=== PATIENT | male | born 1945 | race Caucasian/White ===

== ENCOUNTER 2016-10-22 14:41 | Emergency (ER) | payer MEDICARE, MEDICAID ==
[~2016-10-22] VITALS: Ht 170.2 cm; Wt 80.0 kg
[~2016-10-22 14:41] MED LIST: ALBU90AE IH; ASPI-1158 PO; ATEN50TA PO; ATOR10TA69 PO; BENA20TA3 PO; CALC1TAB17 PO; DEXT15DR5 EACHEYE; FLUT100D IH; FLUT1DIS5 INH; HERB1CAP2 PO; IBUP200C5 PO; INSU100V3 SQ; METF500T4 PO; MOME13HF2 INH; NPH,100V11 SQ; OMEP20TA80 PO; PRAV20TA57 PO; SEREDK IH; SOTA80TA PO; TIOT18CA3 IH; VIT1TABL77 PO; [UNRECOGNIZED DRUG - CODE] OP
[2016-10-22 17:22] VITALS: BP 149/76
== END 2016-10-22 18:37 | disposition home or self-care (01) ==
LOC: ER 18:15
DX: H93.8X1 Other specified disorders of right ear (principal); E11.8 Type 2 diabetes mellitus with unspecified complications; Z79.4 Long term (current) use of insulin; I11.9 Hypertensive heart disease without heart failure; J45.909 Unspecified asthma, uncomplicated; J44.9 Chronic obstructive pulmonary disease, unspecified; E78.00 Pure hypercholesterolemia, unspecified
CPT/HCPCS: 99283

== ENCOUNTER 2018-06-02 09:15 | Inpatient (IN) | payer MEDICARE, MEDICAID ==
[~2018-06-02] VITALS: Ht 170.2 cm; Wt 70.8 kg
[~2018-06-02 09:15] MED LIST changes: +AMMO120C2 TP; -ATEN50TA PO; +BECL8.7H BOTHNSTRLS; -BENA20TA3 PO; -CALC1TAB17 PO; -DEXT15DR5 EACHEYE; -HERB1CAP2 PO; -IBUP200C5 PO; +METF-414 PO; -METF500T4 PO; -OMEP20TA80 PO; -PRAV20TA57 PO; -SEREDK IH; -[UNRECOGNIZED DRUG - CODE] OP
[2018-06-02] MEDS ORDERED: DEXTROSE 50% WATER 50ML SYRINGE IV PRN (11:15)
[2018-06-02] MEDS ORDERED: LORAZEPAM 0.5MG TABLET PO PRN (11:15)
[2018-06-02] MEDS ORDERED: IPRATROPIUM/ALBUTEROL 0.5-3(2.5)MG/3ML NEB HHN SCH (11:15)
[2018-06-02] MEDS ORDERED: MAGNESIUM/ALUMINUM HYDROXIDE/SIMETHICONE 30ML UDC PO PRN (11:15)
[2018-06-02] MEDS ORDERED: ONDANSETRON HCL 4MG/2ML INJ IV PRN (11:15)
[2018-06-02] MEDS ORDERED: CLONIDINE 0.1MG TABLET PO PRN (11:15)
[2018-06-02] MEDS ORDERED: DOCUSATE SODIUM 100MG CAPSULE PO PRN (11:15)
[2018-06-02 12:00] VITALS: BP 125/64
[2018-06-02 12:28] VITALS: BP 125/64
[2018-06-02] MEDS: INSULIN LISPRO 100 UNITS/ML SUBCUT SCH ×3 (12:52→21:00)
[2018-06-02] MEDS: BLOOD SUGAR DIAGNOSTIC STRIP TEST SCH ×3 (12:52→21:31)
[2018-06-02] MEDS ORDERED: ACETAMINOPHEN 325MG TABLET PO PRN (13:00)
[2018-06-02 14:26] LABS: BASOPHILS % 0.6 % (0.0-2.0); EOSINOPHILS % 2.5 % (0.0-5.0); HEMATOCRIT. 36.5 % (42.0-52.0); HEMOGLOBIN. 12.5 g/dL (14.0-18.0); LYMPHOCYTES % 14.5 % (20.0-50.0); MEAN CORPUSCULAR HEMOGLOBIN 28.7 pg (28.0-32.0); MEAN CORPUSCULAR VOLUME 84.1 fL (80.0-94.0); MEAN PLATELET VOLUME 7.8 fl (7.4-10.4); NEUTROPHILS % 73.4 % (40.0-76.0); PLATELET 188 x1000/uL (130-400); RED BLOOD CELL COUNT 4.34 mill/uL (4.7-6.1)
[2018-06-02 14:35] LABS: CHLORIDE 108 mEq/L (98-107); INR 1.2; PARTIAL THROMBOPLASTIN TIME 32.7 sec (23.4-31.0); PROTHROMBIN TIME 12.3 sec (9.1-11.1)
[2018-06-02 16:00] VITALS: BP 122/68
[2018-06-02 16:16] LABS: CLARITY URINE CLEAR (CLEAR); COLOR URINE YELLOW (YELLOW); KETONES URINE NEGATIVE (NEGATIVE); LEUKOCYTE ESTERASE URINE NEGATIVE (NEGATIVE); NITRITE URINE NEGATIVE (NEGATIVE); OCCULT BLOOD URINE NEGATIVE (NEGATIVE); PH URINE 7.5 (4.5-8.0); PROTEIN URINE NEGATIVE (NEGATIVE); SPECIFIC GRAVITY URINE 1.012 (1.005-1.030)
[2018-06-02] MEDS: SODIUM CHLORIDE 0.9% INJ 3ML FLUSH IVF SCH (18:10)
[2018-06-02 20:00] VITALS: BP 131/68
[2018-06-03] VITALS: BP 126/59
[2018-06-03] MEDS: IPRATROPIUM/ALBUTEROL 0.5-3(2.5)MG/3ML NEB HHN SCH ×6 (01:14→20:30)
[2018-06-03] MEDS: BUDESONIDE 0.5MG/2ML NEB HHN SCH ×2 (01:20→08:56)
[2018-06-03 04:00] VITALS: BP 139/60
[2018-06-03] MEDS: BLOOD SUGAR DIAGNOSTIC STRIP TEST SCH ×3 (06:14→16:45)
[2018-06-03] MEDS: INSULIN LISPRO 100 UNITS/ML SUBCUT SCH ×3 (06:14→16:45)
[2018-06-03] MEDS: SODIUM CHLORIDE 0.9% INJ 3ML FLUSH IVF SCH ×2 (07:05→14:00)
[2018-06-03 08:00] VITALS: BP 123/67
[2018-06-03] MEDS: ATORVASTATIN CALCIUM 20MG TABLET PO SCH (09:00)
[2018-06-03] MEDS ORDERED: BUPIVACAINE/EPINEPH/PF 0.25%/0.0005 10ML ONE ×2 (11:13→12:37)
[2018-06-03 12:00] VITALS: BP 122/74
[2018-06-03] MEDS ORDERED: BACITRACIN 50,000 UNITS/VIAL ONE (12:38)
[2018-06-03] MEDS ORDERED: NORMAL SALINE 0.9% 10 ML SYR ONE (12:38)
[2018-06-03] MEDS ORDERED: DEXT 5%/0.45% NACL 1000ML 1,000 ML IV SCH (13:30)
[2018-06-03 16:00] VITALS: BP 127/72
[2018-06-03] MEDS ORDERED: NEOSTIGMINE METHYLSULFATE 1MG/ML 10 ML VIAL ONE (20:24)
[2018-06-03] MEDS ORDERED: FENTANYL CITRATE/PF 50MCG/ML 2ML VIAL ONE ×2 (20:24→20:52)
[2018-06-03] MEDS ORDERED: ROCURONIUM BROMIDE 10MG/ML VIAL 5ML IV ONE ×2 (20:24→21:09)
[2018-06-03] MEDS ORDERED: PROPOFOL 200MG/20ML VIAL IV ONE (20:24)
[2018-06-03] MEDS ORDERED: SODIUM CHLORIDE 0.9% 10ML VIAL ONE (20:25)
[2018-06-03] MEDS ORDERED: METOCLOPRAMIDE HCL 10MG/2ML VIAL ONE (20:25)
[2018-06-03] MEDS ORDERED: MIDAZOLAM HCL 2 MG/2 ML VIAL ONE (20:25)
[2018-06-03] MEDS ORDERED: SUCCINYLCHOLINE CHLORIDE 200MG/10ML IV ONE (20:25)
[2018-06-03] MEDS ORDERED: PHENYLEPHRINE HCL 10 MG/ML 1ML (IV VIAL) IV ONE (20:25)
[2018-06-03] MEDS ORDERED: ONDANSETRON HCL 4MG/2ML INJ ONE (20:25)
[2018-06-03] MEDS ORDERED: EPHEDRINE SULFATE 50MG/ML VIAL ONE (20:25)
[2018-06-03] MEDS ORDERED: CEFAZOLIN SODIUM 1000MG/VIAL ONE (20:25)
[2018-06-03] MEDS ORDERED: GLYCOPYRROLATE 0.2 MG/ML 2ML VIAL ONE (20:25)
[2018-06-03] MEDS ORDERED: LIDOCAINE HCL/PF 1% 10 MG/ML 5ML VIAL ONE (20:25)
[2018-06-03] MEDS ORDERED: DEXAMETHASONE 4MG/ML 1ML VIAL ONE (20:25)
[2018-06-03] MEDS ORDERED: SKIN ADHESIVE 0.7 GM EA TOP ONE (21:12)
[2018-06-03] MEDS ORDERED: SODIUM CHLORIDE 0.9% 1,000 ML IV SCH (21:24)
[2018-06-03] MEDS ORDERED: MEPERIDINE HCL/PF 25MG/ML CPJ IV PRN ×2 (21:30)
[2018-06-03] MEDS ORDERED: MORPHINE SULFATE 4 MG/ML CPJ (NOT FOR IM USE) IV PRN (21:30)
[2018-06-03] MEDS ORDERED: MIDAZOLAM HCL 5 MG/5 ML VIAL IV NR (21:30)
[2018-06-03] MEDS ORDERED: HYDROMORPHONE HCL/PF 2MG/ML CPJ IV PRN (21:30)
[2018-06-03] MEDS ORDERED: ONDANSETRON HCL 4MG/2ML INJ IV PRN (21:30)
[2018-06-03 22:08] LABS: HEMATOCRIT 35.6 % (42.0-52.0); HEMOGLOBIN 11.9 g/dL (14.0-18.0); MEAN CORPUSCULAR HEMOGLOBIN 28.2 pg (28.0-32.0); MEAN CORPUSCULAR VOLUME 84.5 fL (80.0-94.0); PLATELET 163 x1000/uL (130-400); RED BLOOD CELL COUNT 4.21 mill/uL (4.7-6.1); RED CELL DISTRIBUTION WIDTH 13.7 % (11.6-14.6)
[2018-06-03] MEDS ORDERED: LABETALOL 5MG/ML SYR 20 MG/4 ML SYRINGE IV NR (22:30)
[2018-06-04] VITALS (52 sets, daily range): BP systolic 131–178; BP diastolic 66–100
[2018-06-04] MEDS: PROPOFOL 10MG/ML 100ML 100 ML IV PRN ×2 (01:11→06:34)
[2018-06-04] MEDS ORDERED: HYDRALAZINE 20MG/ML VIAL IV PRN (02:00)
[2018-06-04 02:20] LABS: BG DEOXYHEMOGLOBIN 0.5 % (0.0-5.0); BG FRACTION INSPIRED OXYGEN 100; BG HCO3 ACT 21.1 mmol/L (22.0-26.0); BG METHEMOGLOBIN 0.5 % (0.0-1.5); BG OXYGEN SATURATION 99.5 % (92.0-98.5); BG PCO2 38.6 mmHg (35.0-45.0); BG PH 7.355 (7.350-7.450); BG PIP 16 cmH2O; BG PO2 409.9 mmHg (75.0-100.0); BG SAMPLE SITE RIGHT RADIAL; BG TIDAL VOLUME(mL) 450 mL; BG TOTAL HEMOGLOBIN 13.9 g/dL (12.0-18.0); BG VENT MODE VENT - A/C; BG VENT RATE 12 set
[2018-06-04] MEDS: IPRATROPIUM/ALBUTEROL 0.5-3(2.5)MG/3ML NEB HHN SCH ×4 (03:55→20:20)
[2018-06-04 05:49] LABS: HEMATOCRIT. 39.9 % (42.0-52.0); HEMOGLOBIN. 13.5 g/dL (14.0-18.0); MEAN CORPUSCULAR HEMOGLOBIN 28.3 pg (28.0-32.0); MEAN CORPUSCULAR VOLUME 83.9 fL (80.0-94.0); PLATELET 207 x1000/uL (130-400); RED BLOOD CELL COUNT 4.76 mill/uL (4.7-6.1); RED CELL DISTRIBUTION WIDTH 14.1 % (11.6-14.6)
[2018-06-04 05:56] LABS: CHLORIDE 106 mEq/L (98-107)
[2018-06-04] MEDS: INSULIN LISPRO 100 UNITS/ML SUBCUT SCH ×4 (06:36→21:20)
[2018-06-04] MEDS: BLOOD SUGAR DIAGNOSTIC STRIP TEST SCH ×5 (06:36→20:47)
[2018-06-04 07:45] LABS: PLATELET ESTIMATE NORMAL
[2018-06-04] MEDS: ATORVASTATIN CALCIUM 20MG TABLET PO SCH (09:00)
[2018-06-04] MEDS: BUDESONIDE 0.5MG/2ML NEB HHN SCH ×2 (09:31→20:21)
[2018-06-04 11:37] LABS: BG BASE EXCESS -3.2 mmol/L (-2.0-2.0); BG CARBOXYHEMOGLOBIN 0.8 % (0.5-1.5); BG DEOXYHEMOGLOBIN 1.6 % (0.0-5.0); BG FRACTION INSPIRED OXYGEN 40; BG HCO3 ACT 21.1 mmol/L (22.0-26.0); BG METHEMOGLOBIN 0.5 % (0.0-1.5); BG OXYGEN SATURATION 98.4 % (92.0-98.5); BG OXYHEMOGLOBIN 97.1 % (94.0-97.0); BG PCO2 35.6 mmHg (35.0-45.0); BG PO2 123.8 mmHg (75.0-100.0); BG PRESSURE SUPPORT 8; BG SAMPLE SITE RIGHT RADIAL; BG TOTAL HEMOGLOBIN 14.6 g/dL (12.0-18.0); BG VENT MODE VENT - CPAP
[2018-06-04] MEDS: SODIUM CHLORIDE 0.9% INJ 3ML FLUSH IVF SCH (21:05)
[2018-06-05] VITALS (10 sets, daily range): BP systolic 129–159; BP diastolic 65–88
[2018-06-05] MEDS: IPRATROPIUM/ALBUTEROL 0.5-3(2.5)MG/3ML NEB HHN SCH ×4 (00:31→11:47)
[2018-06-05] MEDS: SODIUM CHLORIDE 0.9% INJ 3ML FLUSH IVF SCH (05:30)
[2018-06-05] MEDS: BLOOD SUGAR DIAGNOSTIC STRIP TEST SCH ×2 (06:29→08:05)
[2018-06-05] MEDS: ATORVASTATIN CALCIUM 20MG TABLET PO SCH (08:05)
[2018-06-05] MEDS: INSULIN LISPRO 100 UNITS/ML SUBCUT SCH ×2 (08:11→12:35)
[2018-06-05] MEDS: BUDESONIDE 0.5MG/2ML NEB HHN SCH (08:50)
== END 2018-06-05 16:18 | disposition home or self-care (01) | DRG 168 ==
LOC: 5WST 09:15 → MICUSO 06-04 01:01 → 3WST 06-05 00:48
PROVIDERS: ADMIT Internal Medicine Critical Care Medicine; ATTEND Internal Medicine Critical Care Medicine
PROC: 5A1935Z Respiratory Ventilation, Less than 24 Consecutive Hours (ICD-10-PCS; principal; 2018-06-03)
PROC: 07B74ZX Excision of Thorax Lymphatic, Percutaneous Endoscopic Approach, Diagnostic (ICD-10-PCS; 2018-06-03)
PROC: 0BJ08ZZ Inspection of Tracheobronchial Tree, Via Natural or Artificial Opening Endoscopic (ICD-10-PCS; 2018-06-03)
DX: R91.8 Other nonspecific abnormal finding of lung field (principal); J45.909 Unspecified asthma, uncomplicated; I10 Essential (primary) hypertension; E11.9 Type 2 diabetes mellitus without complications; Z85.46 Personal history of malignant neoplasm of prostate; C61 Malignant neoplasm of prostate; Z79.4 Long term (current) use of insulin; Z79.51 Long term (current) use of inhaled steroids; Z79.899 Other long term (current) drug therapy
CPT/HCPCS: 36415; 36600; 71045; 80048; 82375; 82805; 82962; 84478; 85027; 88305; 88331; 94002; 94003; 94640; J0171; J0330; J0360; J0690; J1100; J1815; J2175; J2250; J2370; J2405; J2704; J2710; J2765; J3010; J3490; J7040; J7070; J7620; J7626

== ENCOUNTER 2018-06-08 21:08 | Inpatient (IN) | payer MEDICARE, MEDICAID ==
[~2018-06-08] VITALS: Ht 170.2 cm; Wt 74.9 kg
[2018-06-08] MEDS ORDERED: SODIUM CHLORIDE 0.9% 1,000 ML IV ONE (23:32)
[2018-06-08] MEDS ORDERED: ONDANSETRON HCL 4MG/2ML INJ IV STA (23:32)
[2018-06-09] VITALS (9 sets, daily range): BP systolic 100–141; BP diastolic 43–70
[2018-06-09 00:24] LABS: HEMATOCRIT. 39.1 % (42.0-52.0); HEMOGLOBIN. 13.5 g/dL (14.0-18.0); MEAN CORPUSCULAR HEMOGLOBIN 28.6 pg (28.0-32.0); MEAN CORPUSCULAR VOLUME 82.8 fL (80.0-94.0); PLATELET 207 x1000/uL (130-400); RED BLOOD CELL COUNT 4.73 mill/uL (4.7-6.1); RED CELL DISTRIBUTION WIDTH 14.2 % (11.6-14.6)
[2018-06-09 00:29] LABS: CHLORIDE 106 mEq/L (98-107)
[2018-06-09 00:57] LABS: INR 1.3; PROTHROMBIN TIME 13.3 sec (9.1-11.1)
[2018-06-09 01:05] LABS: PLATELET ESTIMATE NORMAL
[2018-06-09] MEDS ORDERED: IOHEXOL-300 100 ML BOTTLE ONE (01:36)
[2018-06-09] MEDS ORDERED: SODIUM CHLORIDE 0.9% 1,000 ML IV ONE (02:05)
[2018-06-09] MEDS ORDERED: VANCOMYCIN 1 G PREMIX 200 ML IV SCH (02:15)
[2018-06-09] MEDS ORDERED: PIPERACILLIN/TAZ 3.375G PREMIX 50 ML IV ONE (02:15)
[2018-06-09] MEDS ORDERED: IPRATROPIUM/ALBUTEROL 0.5-3(2.5)MG/3ML NEB INH PRN (08:30)
[2018-06-09] MEDS ORDERED: HYDROMORPHONE HCL/PF 2MG/ML CPJ IV PRN (08:30)
[2018-06-09] MEDS ORDERED: IPRATROPIUM/ALBUTEROL 0.5-3(2.5)MG/3ML NEB HHN SCH (08:30)
[2018-06-09] MEDS ORDERED: ONDANSETRON HCL 4MG/2ML INJ IV PRN (08:30)
[2018-06-09] MEDS ORDERED: PIPERACILLIN/TAZ 3.375G PREMIX 50 ML IV SCH (11:30)
[2018-06-09] MEDS ORDERED: DIATR MEGLU/DIATRIZOATE SOLN 120ML ONE (12:06)
[2018-06-09] MEDS ORDERED: DEXTROSE 50% WATER 50ML SYRINGE IV PRN (12:45)
[2018-06-09] MEDS: INSULIN LISPRO 100 UNITS/ML SUBCUT SCH ×3 (12:45→21:22)
[2018-06-09] MEDS ORDERED: LABETALOL HCL 200 MG in DEXT 5% WATER 60 ML IV PRN (12:45)
[2018-06-09] MEDS ORDERED: IPRATROPIUM/ALBUTEROL 0.5-3(2.5)MG/3ML NEB HHN PRN (12:45)
[2018-06-09] MEDS ORDERED: ACETYLCYSTEINE 100MG/ML 10% VIAL 4ML INH NR (13:00)
[2018-06-09] MEDS: BLOOD SUGAR DIAGNOSTIC STRIP TEST SCH ×3 (13:03→21:15)
[2018-06-09] MEDS: IPRATROPIUM/ALBUTEROL 0.5-3(2.5)MG/3ML NEB HHN SCH (13:56)
[2018-06-09] MEDS: METHYLPREDNISOLONE SOD SUCC 125 MG/2 ML VIAL IV SCH ×2 (14:15→21:22)
[2018-06-09] MEDS: DEXT 5%/0.45% NACL 1000ML 1,000 ML IV SCH (18:31)
[2018-06-09] MEDS: VANCOMYCIN 1 G PREMIX 200 ML IV SCH (18:31)
[2018-06-09] MEDS: PIPERACILLIN/TAZ 3.375G PREMIX 50 ML IV SCH (21:07)
[2018-06-09] MEDS: FAMOTIDINE 20MG/2ML VIAL IV SCH (21:15)
[2018-06-10] VITALS (11 sets, daily range): BP systolic 108–138; BP diastolic 60–76
[2018-06-10] MEDS: PIPERACILLIN/TAZ 3.375G PREMIX 50 ML IV SCH ×4 (03:28→21:47)
[2018-06-10] MEDS: DEXT 5%/0.45% NACL 1000ML 1,000 ML IV SCH ×2 (03:29→10:37)
[2018-06-10] MEDS: METHYLPREDNISOLONE SOD SUCC 125 MG/2 ML VIAL IV SCH ×3 (05:51→21:47)
[2018-06-10] MEDS: VANCOMYCIN 1 G PREMIX 200 ML IV SCH ×2 (05:51→18:45)
[2018-06-10] MEDS: INSULIN LISPRO 100 UNITS/ML SUBCUT SCH ×4 (06:58→20:13)
[2018-06-10] MEDS: BLOOD SUGAR DIAGNOSTIC STRIP TEST SCH ×4 (06:58→21:47)
[2018-06-10] MEDS: FAMOTIDINE 20MG/2ML VIAL IV SCH (10:05)
[2018-06-10] MEDS ORDERED: PANTOPRAZOLE SODIUM 40 MG/VIAL IV SCH (12:00)
[2018-06-10] MEDS ORDERED: SODIUM CHLORIDE 10% FOR INH 15ML VIAL NEB INH SCH (14:45)
[2018-06-10 15:04] LABS: CLARITY URINE CLOUDY (CLEAR); COLOR URINE DARK YELLOW (YELLOW); KETONES URINE NEGATIVE (NEGATIVE); LEUKOCYTE ESTERASE URINE NEGATIVE (NEGATIVE); NITRITE URINE NEGATIVE (NEGATIVE); OCCULT BLOOD URINE NEGATIVE (NEGATIVE); PH URINE 6.5 (4.5-8.0); PROTEIN URINE NEGATIVE (NEGATIVE); SPECIFIC GRAVITY URINE 1.019 (1.005-1.030)
[2018-06-10 16:46] LABS: HEMATOCRIT. 36.3 % (42.0-52.0); HEMOGLOBIN. 12.4 g/dL (14.0-18.0); MEAN CORPUSCULAR HEMOGLOBIN 28.3 pg (28.0-32.0); MEAN PLATELET VOLUME 8.5 fl (7.4-10.4); PLATELET 219 x1000/uL (130-400); RED BLOOD CELL COUNT 4.38 mill/uL (4.7-6.1); RED CELL DISTRIBUTION WIDTH 14.1 % (11.6-14.6)
[2018-06-10 16:53] LABS: CHLORIDE 107 mEq/L (98-107)
[2018-06-10] MEDS ORDERED: AZITHROMYCIN 500 MG TABLET PO NR (17:00)
[2018-06-10 17:14] LABS: PLATELET ESTIMATE NORMAL
[2018-06-10] MEDS ORDERED: INSULIN GLARGINE UD 100 UNITS/ML SYR SUBCUT NR (19:30)
[2018-06-10] MEDS: FLUTICASONE PROPIONATE 50MCG/SPRAY BOTTLE BOTHNSTRLS SCH (21:46)
[2018-06-10] MEDS: PANTOPRAZOLE SODIUM 40 MG/VIAL IV SCH (21:46)
[2018-06-11] VITALS (11 sets, daily range): BP systolic 95–133; BP diastolic 51–78
[2018-06-11] MEDS: ACETYLCYSTEINE 100MG/ML 10% VIAL 4ML INH SCH ×4 (00:03→16:32)
[2018-06-11] MEDS: IPRATROPIUM/ALBUTEROL 0.5-3(2.5)MG/3ML NEB HHN SCH ×6 (00:47→20:19)
[2018-06-11] MEDS: PIPERACILLIN/TAZ 3.375G PREMIX 50 ML IV SCH ×4 (04:05→21:07)
[2018-06-11] MEDS: VANCOMYCIN 1 G PREMIX 200 ML IV SCH ×3 (06:14→22:35)
[2018-06-11] MEDS: METHYLPREDNISOLONE SOD SUCC 125 MG/2 ML VIAL IV SCH ×2 (06:15→13:27)
[2018-06-11 06:50] LABS: HEMATOCRIT. 37.9 % (42.0-52.0); HEMOGLOBIN. 12.9 g/dL (14.0-18.0); MEAN CORPUSCULAR HEMOGLOBIN 28.2 pg (28.0-32.0); MEAN CORPUSCULAR VOLUME 83.2 fL (80.0-94.0); MEAN PLATELET VOLUME 8.5 fl (7.4-10.4); PLATELET 231 x1000/uL (130-400); RED BLOOD CELL COUNT 4.56 mill/uL (4.7-6.1); RED CELL DISTRIBUTION WIDTH 14.3 % (11.6-14.6)
[2018-06-11 07:45] LABS: CHLORIDE 109 mEq/L (98-107)
[2018-06-11] MEDS: BLOOD SUGAR DIAGNOSTIC STRIP TEST SCH ×4 (07:51→20:32)
[2018-06-11 07:53] LABS: VANCOMYCIN TROUGH 11.9 ug/mL (5.0-10.0)
[2018-06-11] MEDS: PANTOPRAZOLE SODIUM 40 MG/VIAL IV SCH ×2 (08:34→21:06)
[2018-06-11] MEDS: INSULIN LISPRO 100 UNITS/ML SUBCUT SCH ×4 (08:35→21:06)
[2018-06-11] MEDS: FLUTICASONE PROPIONATE 50MCG/SPRAY BOTTLE BOTHNSTRLS SCH ×2 (08:35→21:07)
[2018-06-11 10:51] LABS: PLATELET ESTIMATE NORMAL
[2018-06-11] MEDS ORDERED: BARIUM SULFATE 176 GM SUSP.RECON ONE (11:29)
[2018-06-11] MEDS: AZITHROMYCIN 250 MG TABLET PO SCH (17:21)
[2018-06-11] MEDS: METHYLPREDNISOLONE SOD SUCC 40 MG/ML VIAL IV SCH (21:06)
[2018-06-11] MEDS: SODIUM CHLORIDE 0.9% 1,000 ML IV SCH (21:09)
[2018-06-12] VITALS (11 sets, daily range): BP systolic 104–154; BP diastolic 45–83
[2018-06-12] MEDS: IPRATROPIUM/ALBUTEROL 0.5-3(2.5)MG/3ML NEB HHN SCH ×5 (00:03→16:12)
[2018-06-12] MEDS: PIPERACILLIN/TAZ 3.375G PREMIX 50 ML IV SCH ×3 (04:43→17:01)
[2018-06-12] MEDS: METHYLPREDNISOLONE SOD SUCC 40 MG/ML VIAL IV SCH ×2 (05:24→13:39)
[2018-06-12 06:26] LABS: HEMATOCRIT. 35.3 % (42.0-52.0); HEMOGLOBIN. 11.7 g/dL (14.0-18.0); MEAN CORPUSCULAR HEMOGLOBIN 27.9 pg (28.0-32.0); MEAN CORPUSCULAR VOLUME 84.4 fL (80.0-94.0); MEAN PLATELET VOLUME 8.4 fl (7.4-10.4); PLATELET 215 x1000/uL (130-400); RED BLOOD CELL COUNT 4.18 mill/uL (4.7-6.1); RED CELL DISTRIBUTION WIDTH 14.2 % (11.6-14.6)
[2018-06-12] MEDS: VANCOMYCIN 1 G PREMIX 200 ML IV SCH ×2 (06:58→15:25)
[2018-06-12] MEDS: BLOOD SUGAR DIAGNOSTIC STRIP TEST SCH ×3 (07:35→17:02)
[2018-06-12 08:00] LABS: CHLORIDE 107 mEq/L (98-107)
[2018-06-12] MEDS: PANTOPRAZOLE SODIUM 40 MG/VIAL IV SCH (08:21)
[2018-06-12] MEDS: FLUTICASONE PROPIONATE 50MCG/SPRAY BOTTLE BOTHNSTRLS SCH (08:22)
[2018-06-12] MEDS: INSULIN LISPRO 100 UNITS/ML SUBCUT SCH ×3 (08:23→18:00)
[2018-06-12 09:09] LABS: HIV SCREEN 4G Non Reactive (Non Reactive)
[2018-06-12 10:05] LABS: PLATELET ESTIMATE NORMAL
[2018-06-12] MEDS ORDERED: SULF1TAB48 MT (12:37)
[2018-06-12] MEDS ORDERED: FAMO-135 MT (12:37)
[2018-06-12] MEDS ORDERED: POTASSIUM CHLORIDE 20MEQ/PACKET PO NR (12:45)
[2018-06-12] MEDS ORDERED: INSULIN LISPRO 100 UNITS/ML SUBCUT NR (13:00)
[2018-06-12] MEDS: AZITHROMYCIN 250 MG TABLET PO SCH (17:01)
[2018-06-12] MEDS: SODIUM CHLORIDE 0.9% 1,000 ML IV SCH (17:02)
[2018-06-14 17:06] LABS: HISTOPLASMA ABS QT DID Negative (Neg:<1:1)
== END 2018-06-12 19:42 | disposition home or self-care (01) | DRG 871 ==
LOC: ER 22:59 → 5EST 06-09 02:39 → EDBEDREQSVC 06-09 09:28 → ENRESERV 06-09 12:57
PROVIDERS: ADMIT Internal Medicine Critical Care Medicine; ATTEND Internal Medicine Critical Care Medicine
DX: A41.9 Sepsis, unspecified organism (principal); J18.1 Lobar pneumonia, unspecified organism; J96.00 Acute respiratory failure, unspecified whether with hypoxia or hypercapnia; J98.51 Mediastinitis; N39.0 Urinary tract infection, site not specified; J44.0 Chronic obstructive pulmonary disease with (acute) lower respiratory infection; E11.65 Type 2 diabetes mellitus with hyperglycemia; E78.00 Pure hypercholesterolemia, unspecified; I10 Essential (primary) hypertension; K80.20 Calculus of gallbladder without cholecystitis without obstruction; E78.5 Hyperlipidemia, unspecified; J31.0 Chronic rhinitis; K29.70 Gastritis, unspecified, without bleeding; K74.60 Unspecified cirrhosis of liver; B95.61 Methicillin susceptible Staphylococcus aureus infection as the cause of diseases classified elsewhere; R13.10 Dysphagia, unspecified; Z85.46 Personal history of malignant neoplasm of prostate; Z85.828 Personal history of other malignant neoplasm of skin; Z79.899 Other long term (current) drug therapy; Z79.82 Long term (current) use of aspirin
CPT/HCPCS: 36415; 71045; 71260; 74220; 74230; 80048; 80202; 82962; 83605; 83880; 84145; 84484; 86635; 86698; 86850; 86900; 87070; 87077; 87186; 87389; 87899; 92610; 92611; 93005; 93970; 94640; 96365; 96375; 97162; 99291; C9113; J1170; J1815; J2405; J2543; J2920; J2930; J3370; J3490; J7030; J7050; J7131; J7608; J7620; Q9963; Q9967

== ENCOUNTER 2018-06-25 11:45 | Inpatient (IN) | payer MEDICARE, MEDICAID ==
[~2018-06-25] VITALS: Ht 170.2 cm; Wt 73.5 kg
[~2018-06-25 11:45] MED LIST changes: +FAMO-135 MT; +SULF1TAB48 MT
[2018-06-25 14:00] VITALS: BP 109/53
[2018-06-25] MEDS ORDERED: ACETAMINOPHEN 650MG SUPP PR PRN (14:15)
[2018-06-25] MEDS ORDERED: CLONIDINE 0.1MG TABLET PO PRN (14:15)
[2018-06-25] MEDS ORDERED: DOCUSATE SODIUM 100MG CAPSULE PO PRN (14:15)
[2018-06-25] MEDS ORDERED: DEXTROSE 50% WATER 50ML SYRINGE IV PRN (14:15)
[2018-06-25] MEDS ORDERED: ONDANSETRON HCL 4MG/2ML INJ IV PRN (14:15)
[2018-06-25] MEDS ORDERED: DIPHENHYDRAMINE 50MG/ML VIAL IV PRN (14:15)
[2018-06-25 15:00] VITALS: BP 109/53
[2018-06-25 16:00] VITALS: BP 112/53
[2018-06-25 16:58] LABS: BASOPHILS % 0.4 % (0.0-2.0); EOSINOPHILS % 0.8 % (0.0-5.0); HEMATOCRIT. 36.3 % (42.0-52.0); HEMOGLOBIN. 12.2 g/dL (14.0-18.0); LYMPHOCYTES % 9.4 % (20.0-50.0); MEAN CORPUSCULAR HEMOGLOBIN 28.8 pg (28.0-32.0); MEAN CORPUSCULAR VOLUME 85.3 fL (80.0-94.0); MEAN PLATELET VOLUME 7.5 fl (7.4-10.4); NEUTROPHILS % 77.4 % (40.0-76.0); PLATELET 222 x1000/uL (130-400); RED BLOOD CELL COUNT 4.26 mill/uL (4.7-6.1); RED CELL DISTRIBUTION WIDTH 15.5 % (11.6-14.6)
[2018-06-25 17:01] LABS: CHLORIDE 105 mEq/L (98-107)
[2018-06-25 17:05] LABS: INR 1.2; PROTHROMBIN TIME 12.2 sec (9.1-11.1)
[2018-06-25] MEDS: INSULIN LISPRO 100 UNITS/ML SUBCUT SCH ×2 (17:48→20:36)
[2018-06-25] MEDS: BLOOD SUGAR DIAGNOSTIC STRIP TEST SCH ×2 (17:48→20:36)
[2018-06-25] MEDS: DEXT 5%/0.45% NACL 1000ML 1,000 ML IV SCH (18:00)
[2018-06-25] MEDS ORDERED: IOHEXOL-300 50 ML BOTTLE IV ONE (18:39)
[2018-06-25] MEDS ORDERED: IOHEXOL-300 100 ML BOTTLE ONE (18:40)
[2018-06-25 20:09] VITALS: BP 116/56
[2018-06-26] VITALS (30 sets, daily range): BP systolic 89–123; BP diastolic 32–63
[2018-06-26] MEDS: BLOOD SUGAR DIAGNOSTIC STRIP TEST SCH ×3 (06:24→21:13)
[2018-06-26] MEDS: ENOXAPARIN 40MG/0.4ML SYR SUBCUT SCH (07:24)
[2018-06-26] MEDS: INSULIN LISPRO 100 UNITS/ML SUBCUT SCH ×4 (07:31→21:15)
[2018-06-26] MEDS ORDERED: NORMAL SALINE 0.9% 10 ML SYR ONE (09:12)
[2018-06-26] MEDS ORDERED: TETRACAINE/BENZOCAINE/BUTAMBEN 20 GM SPRAY MM ONE (09:12)
[2018-06-26] MEDS ORDERED: BUPIVACAINE/EPINEPH/PF 0.25%/0.0005 10ML ONE (09:12)
[2018-06-26] MEDS ORDERED: BACITRACIN 50,000 UNITS/VIAL ONE (09:13)
[2018-06-26] MEDS: PANTOPRAZOLE SODIUM 40 MG/VIAL IV SCH (09:24)
[2018-06-26] MEDS ORDERED: NEOSTIGMINE METHYLSULFATE 1MG/ML 10 ML VIAL ONE (09:51)
[2018-06-26] MEDS ORDERED: PROPOFOL 200MG/20ML VIAL IV ONE (09:51)
[2018-06-26] MEDS ORDERED: MIDAZOLAM HCL 2 MG/2 ML VIAL ONE (09:51)
[2018-06-26] MEDS ORDERED: FENTANYL CITRATE/PF 50MCG/ML 5ML VIAL ONE (09:51)
[2018-06-26] MEDS ORDERED: SUCCINYLCHOLINE CHLORIDE 200MG/10ML IV ONE (09:52)
[2018-06-26] MEDS ORDERED: GLYCOPYRROLATE 0.2 MG/ML 2ML VIAL ONE (09:52)
[2018-06-26] MEDS ORDERED: VECURONIUM BROMIDE 10 MG/VIAL IV ONE (09:52)
[2018-06-26] MEDS ORDERED: EPHEDRINE SULFATE 50MG/ML VIAL ONE (09:53)
[2018-06-26] MEDS ORDERED: SODIUM CHLORIDE 0.9% 10ML VIAL ONE (09:58)
[2018-06-26] MEDS ORDERED: SKIN ADHESIVE 0.7 GM EA TOP ONE (11:17)
[2018-06-26] MEDS ORDERED: BACITRACIN 15GM TUBE TOP ONE (11:51)
[2018-06-26] MEDS ORDERED: ONDANSETRON HCL 4MG/2ML INJ IV PRN (12:15)
[2018-06-26] MEDS ORDERED: FENTANYL CITRATE/PF 50MCG/ML 2ML VIAL IV PRN (12:15)
[2018-06-26] MEDS ORDERED: MORPHINE SULFATE 4 MG/ML CPJ (NOT FOR IM USE) IV PRN (12:15)
[2018-06-26] MEDS ORDERED: MEPERIDINE HCL/PF 25MG/ML CPJ IV PRN (12:15)
[2018-06-26] MEDS ORDERED: HYDROMORPHONE HCL/PF 2MG/ML CPJ IV PRN ×3 (12:15→16:00)
[2018-06-26] MEDS: DEXT 5%/0.45% NACL 1000ML 1,000 ML IV SCH (12:18)
[2018-06-26] MEDS ORDERED: KETOROLAC 30MG/ML VIAL ONE (12:37)
[2018-06-26] MEDS: CEFEPIME 1,000 MG in DEXTROSE 5% WATER 50 ML IV SCH ×2 (13:00→21:31)
[2018-06-26] MEDS ORDERED: METRONIDAZOLE 500 MG PREMIX 100 ML IV SCH ×2 (14:00→21:00)
[2018-06-26] MEDS ORDERED: DIPHENHYDRAMINE INJ IV PRN (14:15)
[2018-06-26] MEDS ORDERED: HYDROMORPHONE PCA 10MG/50ML IV PRN (14:15)
[2018-06-26] MEDS ORDERED: ONDANSETRON INJ IV PRN (14:15)
[2018-06-26] MEDS ORDERED: NALOXONE INJ IV PRN (14:15)
[2018-06-26 18:12] LABS: HEMATOCRIT. 32.4 % (42.0-52.0); HEMOGLOBIN. 11.1 g/dL (14.0-18.0); MEAN CORPUSCULAR HEMOGLOBIN 29.2 pg (28.0-32.0); MEAN CORPUSCULAR VOLUME 85.6 fL (80.0-94.0); MEAN PLATELET VOLUME 7.4 fl (7.4-10.4); PLATELET 170 x1000/uL (130-400); RED BLOOD CELL COUNT 3.78 mill/uL (4.7-6.1); RED CELL DISTRIBUTION WIDTH 14.8 % (11.6-14.6)
[2018-06-26 18:18] LABS: CHLORIDE 107 mEq/L (98-107)
[2018-06-26 20:40] LABS: PLATELET ESTIMATE NORMAL
[2018-06-26] MEDS: METRONIDAZOLE 500 MG PREMIX 100 ML IV SCH (21:31)
[2018-06-27] VITALS (49 sets, daily range): BP systolic 55–154; BP diastolic 35–90
[2018-06-27] MEDS: DEXT 5%/0.45% NACL 1000ML 1,000 ML IV SCH (02:40)
[2018-06-27] MEDS: ACETAMINOPHEN 325MG TABLET PO PRN (04:47)
[2018-06-27 05:47] LABS: HEMATOCRIT. 34.7 % (42.0-52.0); HEMOGLOBIN. 11.7 g/dL (14.0-18.0); MEAN CORPUSCULAR HEMOGLOBIN 28.9 pg (28.0-32.0); MEAN CORPUSCULAR VOLUME 85.6 fL (80.0-94.0); MEAN PLATELET VOLUME 7.3 fl (7.4-10.4); PLATELET 191 x1000/uL (130-400); RED BLOOD CELL COUNT 4.06 mill/uL (4.7-6.1); RED CELL DISTRIBUTION WIDTH 15.4 % (11.6-14.6)
[2018-06-27 05:54] LABS: CHLORIDE 105 mEq/L (98-107)
[2018-06-27] MEDS: BLOOD SUGAR DIAGNOSTIC STRIP TEST SCH ×4 (06:43→21:09)
[2018-06-27] MEDS: INSULIN LISPRO 100 UNITS/ML SUBCUT SCH ×4 (06:44→21:45)
[2018-06-27] MEDS: CEFEPIME 1,000 MG in DEXTROSE 5% WATER 50 ML IV SCH ×2 (09:01→20:06)
[2018-06-27] MEDS: ENOXAPARIN 40MG/0.4ML SYR SUBCUT SCH (09:02)
[2018-06-27] MEDS: METRONIDAZOLE 500 MG PREMIX 100 ML IV SCH ×2 (09:02→21:10)
[2018-06-27] MEDS: PANTOPRAZOLE SODIUM 40 MG/VIAL IV SCH (09:47)
[2018-06-27 14:22] LABS: PLATELET ESTIMATE NORMAL
[2018-06-27 16:41] LABS: HEMATOCRIT 34.5 % (42.0-52.0); HEMOGLOBIN 11.6 g/dL (14.0-18.0); MEAN CORPUSCULAR HEMOGLOBIN 29.2 pg (28.0-32.0); MEAN CORPUSCULAR VOLUME 86.4 fL (80.0-94.0); PLATELET 185 x1000/uL (130-400); RED BLOOD CELL COUNT 3.99 mill/uL (4.7-6.1); RED CELL DISTRIBUTION WIDTH 15.4 % (11.6-14.6)
[2018-06-27 17:05] LABS: HEPATITIS B SURFACE ANTIGEN NEGATIVE
[2018-06-27 17:35] LABS: HEPATITIS A AB IGM NEGATIVE (NEGATIVE)
[2018-06-27 17:46] LABS: CHLORIDE 106 mEq/L (98-107)
[2018-06-27] MEDS: HYDROMORPHONE HCL/PF 2MG/ML CPJ IV PRN (19:25)
[2018-06-28] VITALS (47 sets, daily range): BP systolic 99–144; BP diastolic 57–72
[2018-06-28] MEDS: DEXT 5%/0.45% NACL 1000ML 1,000 ML IV SCH ×2 (00:46→23:33)
[2018-06-28] MEDS: BLOOD SUGAR DIAGNOSTIC STRIP TEST SCH ×4 (05:55→20:57)
[2018-06-28 06:00] LABS: BASOPHILS % 0.6 % (0.0-2.0); EOSINOPHILS % 1.7 % (0.0-5.0); HEMATOCRIT. 32.6 % (42.0-52.0); HEMOGLOBIN. 11.2 g/dL (14.0-18.0); LYMPHOCYTES % 8.2 % (20.0-50.0); MEAN CORPUSCULAR HEMOGLOBIN 29.1 pg (28.0-32.0); MEAN PLATELET VOLUME 7.5 fl (7.4-10.4); NEUTROPHILS % 78.5 % (40.0-76.0); PLATELET 169 x1000/uL (130-400); RED BLOOD CELL COUNT 3.84 mill/uL (4.7-6.1)
[2018-06-28 06:14] LABS: CHLORIDE 105 mEq/L (98-107)
[2018-06-28] MEDS: INSULIN LISPRO 100 UNITS/ML SUBCUT SCH ×4 (06:24→20:57)
[2018-06-28 08:50] LABS: BG CARBOXYHEMOGLOBIN 0.4 % (0.5-1.5); BG FRACTION INSPIRED OXYGEN 32; BG HCO3 ACT 19.2 mmol/L (22.0-26.0); BG METHEMOGLOBIN 0.3 % (0.0-1.5); BG OXYHEMOGLOBIN 96.3 % (94.0-97.0); BG PCO2 29.6 mmHg (35.0-45.0); BG PH 7.431 (7.350-7.450); BG PO2 90.9 mmHg (75.0-100.0); BG SAMPLE SITE LEFT BRACHIAL; BG TOTAL HEMOGLOBIN 11.8 g/dL (12.0-18.0); BG VENT MODE NASAL CANNULA
[2018-06-28] MEDS: PANTOPRAZOLE SODIUM 40 MG/VIAL IV SCH (09:20)
[2018-06-28] MEDS: CEFEPIME 1,000 MG in DEXTROSE 5% WATER 50 ML IV SCH ×2 (09:20→20:57)
[2018-06-28] MEDS: ENOXAPARIN 40MG/0.4ML SYR SUBCUT SCH (09:20)
[2018-06-28] MEDS: METRONIDAZOLE 500 MG PREMIX 100 ML IV SCH ×2 (11:12→20:57)
[2018-06-28] MEDS: HYDROMORPHONE HCL/PF 2MG/ML CPJ IV PRN (16:37)
[2018-06-29] VITALS (48 sets, daily range): BP systolic 114–156; BP diastolic 30–77
[2018-06-29 05:55] LABS: HEMATOCRIT. 32.3 % (42.0-52.0); HEMOGLOBIN. 11.1 g/dL (14.0-18.0); MEAN CORPUSCULAR HEMOGLOBIN 29.1 pg (28.0-32.0); MEAN CORPUSCULAR VOLUME 84.6 fL (80.0-94.0); MEAN PLATELET VOLUME 7.4 fl (7.4-10.4); PLATELET 171 x1000/uL (130-400); RED BLOOD CELL COUNT 3.82 mill/uL (4.7-6.1); RED CELL DISTRIBUTION WIDTH 15.3 % (11.6-14.6)
[2018-06-29 05:56] LABS: CHLORIDE 105 mEq/L (98-107)
[2018-06-29] MEDS: INSULIN LISPRO 100 UNITS/ML SUBCUT SCH ×4 (06:08→20:16)
[2018-06-29] MEDS: BLOOD SUGAR DIAGNOSTIC STRIP TEST SCH ×4 (06:09→20:04)
[2018-06-29] MEDS: CEFEPIME 1,000 MG in DEXTROSE 5% WATER 50 ML IV SCH ×2 (09:35→20:03)
[2018-06-29] MEDS: METRONIDAZOLE 500 MG PREMIX 100 ML IV SCH ×2 (09:35→20:03)
[2018-06-29] MEDS: PANTOPRAZOLE SODIUM 40 MG/VIAL IV SCH (09:35)
[2018-06-29] MEDS: HYDROMORPHONE HCL/PF 2MG/ML CPJ IV PRN ×2 (10:09→18:30)
[2018-06-29 10:31] LABS: PLATELET ESTIMATE NORMAL
[2018-06-29] MEDS: ETHAMBUTOL HCL 400MG TABLET PO SCH (17:45)
[2018-06-29] MEDS: PYRAZINAMIDE 500MG TABLET PO SCH (17:45)
[2018-06-29] MEDS: ISONIAZID 300MG TABLET PO SCH (17:45)
[2018-06-29] MEDS: PYRIDOXINE HCL 50MG TABLET PO SCH (17:45)
[2018-06-29] MEDS: RIFAMPIN 300MG CAPSULE PO SCH (17:46)
[2018-06-29] MEDS: DEXT 5%/0.45% NACL 1000ML 1,000 ML IV SCH (20:03)
[2018-06-30] VITALS (30 sets, daily range): BP systolic 112–145; BP diastolic 58–107
[2018-06-30 05:30] LABS: BASOPHILS % 0.3 % (0.0-2.0); EOSINOPHILS % 2.7 % (0.0-5.0); HEMATOCRIT. 32.5 % (42.0-52.0); HEMOGLOBIN. 11.2 g/dL (14.0-18.0); LYMPHOCYTES % 7.2 % (20.0-50.0); MEAN CORPUSCULAR VOLUME 84.2 fL (80.0-94.0); MEAN PLATELET VOLUME 7.2 fl (7.4-10.4); MONOCYTES % 9.9 % (2.0-8.0); NEUTROPHILS % 79.9 % (40.0-76.0); PLATELET 168 x1000/uL (130-400); RED BLOOD CELL COUNT 3.86 mill/uL (4.7-6.1); RED CELL DISTRIBUTION WIDTH 15.5 % (11.6-14.6)
[2018-06-30 05:45] LABS: INR 1.7; PARTIAL THROMBOPLASTIN TIME 41.4 sec (23.4-31.0); PROTHROMBIN TIME 16.6 sec (9.1-11.1)
[2018-06-30 06:15] LABS: CHLORIDE 107 mEq/L (98-107)
[2018-06-30] MEDS: INSULIN LISPRO 100 UNITS/ML SUBCUT SCH ×4 (07:00→21:01)
[2018-06-30] MEDS: METRONIDAZOLE 500 MG PREMIX 100 ML IV SCH ×2 (09:14→21:00)
[2018-06-30] MEDS: PANTOPRAZOLE SODIUM 40 MG/VIAL IV SCH (09:14)
[2018-06-30] MEDS: CEFEPIME 1,000 MG in DEXTROSE 5% WATER 50 ML IV SCH ×2 (09:15→21:00)
[2018-06-30] MEDS: HYDROMORPHONE HCL/PF 2MG/ML CPJ IV PRN (10:19)
[2018-06-30] MEDS: BLOOD SUGAR DIAGNOSTIC STRIP TEST SCH ×3 (13:00→20:11)
[2018-06-30] MEDS: ACETYLCYSTEINE 100MG/ML 10% VIAL 4ML INH SCH (13:32)
[2018-06-30] MEDS: IPRATROPIUM/ALBUTEROL 0.5-3(2.5)MG/3ML NEB HHN PRN (13:33)
[2018-06-30 15:06] LABS: QFT MITOGEN VALUE 4.34 IU/mL (.); QFT TB GOLD PLUS Positive (Negative); QFT TB1 AG VALUE 3.13 IU/mL (.)
[2018-06-30] MEDS: DEXT 5%/0.45% NACL 1000ML 1,000 ML IV SCH (16:45)
[2018-06-30] MEDS ORDERED: SODIUM CHLORIDE 3% FOR INH 4ML UD NEB INH NR (17:00)
[2018-06-30] MEDS: PYRAZINAMIDE 500MG TABLET PO SCH (18:22)
[2018-06-30] MEDS: PYRIDOXINE HCL 50MG TABLET PO SCH (18:22)
[2018-06-30] MEDS: ETHAMBUTOL HCL 400MG TABLET PO SCH (18:22)
[2018-06-30] MEDS: ISONIAZID 300MG TABLET PO SCH (18:22)
[2018-06-30] MEDS: RIFAMPIN 300MG CAPSULE PO SCH (18:22)
[2018-07-01] VITALS: BP 128/64
[2018-07-01] MEDS: IPRATROPIUM/ALBUTEROL 0.5-3(2.5)MG/3ML NEB HHN PRN ×2 (00:33→13:26)
[2018-07-01] MEDS: ACETYLCYSTEINE 100MG/ML 10% VIAL 4ML INH SCH ×2 (00:34→13:26)
[2018-07-01 06:00] VITALS: BP 116/57
[2018-07-01] MEDS ORDERED: SODIUM CHLORIDE 10% FOR INH 15ML VIAL NEB INH NR (06:00)
[2018-07-01 06:55] LABS: BASOPHILS % 0.7 % (0.0-2.0); HEMATOCRIT. 34.9 % (42.0-52.0); LYMPHOCYTES % 10.4 % (20.0-50.0); MEAN CORPUSCULAR HEMOGLOBIN 28.9 pg (28.0-32.0); MEAN CORPUSCULAR VOLUME 83.8 fL (80.0-94.0); MEAN PLATELET VOLUME 7.5 fl (7.4-10.4); MONOCYTES % 12.9 % (2.0-8.0); PLATELET 228 x1000/uL (130-400); RED BLOOD CELL COUNT 4.17 mill/uL (4.7-6.1); RED CELL DISTRIBUTION WIDTH 15.6 % (11.6-14.6)
[2018-07-01 06:56] LABS: CHLORIDE 107 mEq/L (98-107)
[2018-07-01 08:00] VITALS: BP 119/61
[2018-07-01] MEDS: BLOOD SUGAR DIAGNOSTIC STRIP TEST SCH ×4 (08:42→21:55)
[2018-07-01] MEDS: INSULIN LISPRO 100 UNITS/ML SUBCUT SCH ×4 (08:42→21:00)
[2018-07-01] MEDS: PANTOPRAZOLE SODIUM 40 MG/VIAL IV SCH (09:36)
[2018-07-01] MEDS: PYRIDOXINE HCL 50MG TABLET PO SCH (09:37)
[2018-07-01] MEDS: METRONIDAZOLE 500 MG PREMIX 100 ML IV SCH ×2 (09:37→21:55)
[2018-07-01] MEDS: ENOXAPARIN 40MG/0.4ML SYR SUBCUT SCH (09:37)
[2018-07-01] MEDS: CEFEPIME 1,000 MG in DEXTROSE 5% WATER 50 ML IV SCH ×2 (09:38→21:55)
[2018-07-01] MEDS: PYRAZINAMIDE 500MG TABLET PO SCH (10:23)
[2018-07-01] MEDS: ETHAMBUTOL HCL 400MG TABLET PO SCH (10:23)
[2018-07-01] MEDS: ISONIAZID 300MG TABLET PO SCH (10:23)
[2018-07-01] MEDS: RIFAMPIN 300MG CAPSULE PO SCH (10:23)
[2018-07-01 12:00] VITALS: BP 114/58
[2018-07-01] MEDS ORDERED: SODIUM CHLORIDE 0.9% 10ML VIAL ONE (15:16)
[2018-07-01] MEDS ORDERED: SIMETHICONE 40 MG/0.6 ML 30ML ONE (15:52)
[2018-07-01] MEDS ORDERED: FENTANYL CITRATE/PF 50MCG/ML 2ML VIAL ONE (15:53)
[2018-07-01] MEDS ORDERED: MIDAZOLAM HCL 5 MG/5 ML VIAL ONE (15:53)
[2018-07-01 16:00] VITALS: BP 118/59
[2018-07-01] MEDS ORDERED: MIDAZOLAM HCL 5 MG/5 ML VIAL IV PRN (16:12)
[2018-07-01] MEDS: DICYCLOMINE HCL 10MG CAPSULE PO SCH (18:28)
[2018-07-01 20:00] VITALS: BP 119/57
[2018-07-02] VITALS: BP 116/59
[2018-07-02] MEDS: IPRATROPIUM/ALBUTEROL 0.5-3(2.5)MG/3ML NEB HHN PRN ×3 (00:45→16:15)
[2018-07-02] MEDS: ACETYLCYSTEINE 100MG/ML 10% VIAL 4ML INH SCH ×4 (00:46→16:11)
[2018-07-02] MEDS: DICYCLOMINE HCL 10MG CAPSULE PO SCH ×4 (01:00→17:39)
[2018-07-02 04:00] VITALS: BP 122/64
[2018-07-02 07:13] LABS: BASOPHILS % 0.9 % (0.0-2.0); EOSINOPHILS % 2.3 % (0.0-5.0); HEMATOCRIT. 35.5 % (42.0-52.0); HEMOGLOBIN. 12.3 g/dL (14.0-18.0); MEAN CORPUSCULAR HEMOGLOBIN 29.2 pg (28.0-32.0); MEAN CORPUSCULAR VOLUME 84.6 fL (80.0-94.0); MEAN PLATELET VOLUME 7.8 fl (7.4-10.4); MONOCYTES % 10.3 % (2.0-8.0); NEUTROPHILS % 78.5 % (40.0-76.0); PLATELET 259 x1000/uL (130-400)
[2018-07-02] MEDS: INSULIN LISPRO 100 UNITS/ML SUBCUT SCH ×4 (07:13→22:33)
[2018-07-02] MEDS: BLOOD SUGAR DIAGNOSTIC STRIP TEST SCH ×4 (07:13→21:00)
[2018-07-02 07:28] LABS: CHLORIDE 108 mEq/L (98-107)
[2018-07-02 08:00] VITALS: BP 130/65
[2018-07-02] MEDS ORDERED: ISONIAZID 300MG TABLET PO SCH ×2 (09:00→14:00)
[2018-07-02] MEDS: PANTOPRAZOLE SODIUM 40 MG/VIAL IV SCH (09:51)
[2018-07-02] MEDS: RIFAMPIN 300MG CAPSULE PO SCH (09:51)
[2018-07-02] MEDS: DEXT 5%/0.45% NACL 1000ML 1,000 ML IV SCH (09:53)
[2018-07-02] MEDS: ENOXAPARIN 40MG/0.4ML SYR SUBCUT SCH (09:53)
[2018-07-02] MEDS: PYRIDOXINE HCL 50MG TABLET PO SCH (09:54)
[2018-07-02 12:00] VITALS: BP 136/64
[2018-07-02] MEDS: CEFEPIME 1,000 MG in DEXTROSE 5% WATER 50 ML IV SCH ×2 (12:59→21:31)
[2018-07-02] MEDS: METRONIDAZOLE 500 MG PREMIX 100 ML IV SCH ×2 (12:59→22:33)
[2018-07-02] MEDS: MULTIVITAMINS,THER W-MINERALS TABLET PO SCH (13:00)
[2018-07-02] MEDS ORDERED: PYRAZINAMIDE 500MG TABLET PO SCH (14:00)
[2018-07-02 16:00] VITALS: BP 125/62
[2018-07-02] MEDS: ONDANSETRON HCL 4MG/2ML INJ IV PRN (17:39)
[2018-07-02] MEDS: ETHAMBUTOL HCL 400MG TABLET PO SCH (17:39)
[2018-07-02 20:00] VITALS: BP 117/60
[2018-07-03] MEDS: DICYCLOMINE HCL 10MG CAPSULE PO SCH ×4 (00:08→19:07)
[2018-07-03] MEDS: IPRATROPIUM/ALBUTEROL 0.5-3(2.5)MG/3ML NEB HHN PRN ×2 (01:39→22:44)
[2018-07-03 04:00] VITALS: BP 112/50
[2018-07-03] MEDS: ONDANSETRON HCL 4MG/2ML INJ IV PRN (05:12)
[2018-07-03] MEDS: DEXT 5%/0.45% NACL 1000ML 1,000 ML IV SCH ×2 (05:13→13:31)
[2018-07-03] MEDS: BLOOD SUGAR DIAGNOSTIC STRIP TEST SCH ×4 (06:41→21:00)
[2018-07-03 07:47] LABS: BASOPHILS % 0.9 % (0.0-2.0); HEMATOCRIT. 36.2 % (42.0-52.0); LYMPHOCYTES % 11.9 % (20.0-50.0); MEAN CORPUSCULAR HEMOGLOBIN 28.4 pg (28.0-32.0); MEAN CORPUSCULAR VOLUME 85.5 fL (80.0-94.0); MEAN PLATELET VOLUME 7.6 fl (7.4-10.4); MONOCYTES % 12.4 % (2.0-8.0); NEUTROPHILS % 69.8 % (40.0-76.0); PLATELET 271 x1000/uL (130-400); RED BLOOD CELL COUNT 4.23 mill/uL (4.7-6.1); RED CELL DISTRIBUTION WIDTH 16.2 % (11.6-14.6)
[2018-07-03 08:00] VITALS: BP 116/56
[2018-07-03] MEDS: INSULIN LISPRO 100 UNITS/ML SUBCUT SCH ×3 (08:10→18:10)
[2018-07-03 08:12] LABS: CHLORIDE 109 mEq/L (98-107)
[2018-07-03] MEDS: LEVOFLOXACIN 250MG TABLET PO SCH (10:55)
[2018-07-03] MEDS: PYRIDOXINE HCL 50MG TABLET PO SCH (10:55)
[2018-07-03] MEDS: PANTOPRAZOLE SODIUM 40 MG/VIAL IV SCH (10:56)
[2018-07-03] MEDS: CEFEPIME 1,000 MG in DEXTROSE 5% WATER 50 ML IV SCH ×2 (10:56→20:52)
[2018-07-03] MEDS: ENOXAPARIN 40MG/0.4ML SYR SUBCUT SCH (10:56)
[2018-07-03] MEDS: METRONIDAZOLE 500 MG PREMIX 100 ML IV SCH ×2 (10:57→20:52)
[2018-07-03 12:00] VITALS: BP 125/61
[2018-07-03] MEDS: LINEZOLID 600MG TABLET PO SCH (13:15)
[2018-07-03] MEDS: MULTIVITAMINS,THER W-MINERALS TABLET PO SCH (13:15)
[2018-07-03] MEDS: ACETYLCYSTEINE 100MG/ML 10% VIAL 4ML INH SCH ×2 (14:00→22:00)
[2018-07-03 16:00] VITALS: BP 133/54
[2018-07-03 20:00] VITALS: BP 148/78
[2018-07-03 20:05] LABS: PHOSPHORUS 1.7 mg/dL (2.5-4.9)
[2018-07-03 20:08] LABS: CREATINE KINASE 22 IU/L (39-308)
[2018-07-03 20:10] LABS: CREATINE KINASE MB FRACTION 1.5 ng/mL (0.5-3.6)
[2018-07-04] VITALS: BP 113/55
[2018-07-04] MEDS: IPRATROPIUM/ALBUTEROL 0.5-3(2.5)MG/3ML NEB HHN PRN (01:05)
[2018-07-04] MEDS: ACETYLCYSTEINE 100MG/ML 10% VIAL 4ML INH SCH ×3 (01:05→14:00)
[2018-07-04] MEDS: DICYCLOMINE HCL 10MG CAPSULE PO SCH ×4 (01:14→19:07)
[2018-07-04 04:00] VITALS: BP 136/72
[2018-07-04 07:26] LABS: HEMOGLOBIN. 11.5 g/dL (14.0-18.0); MEAN CORPUSCULAR HEMOGLOBIN 28.9 pg (28.0-32.0); MEAN CORPUSCULAR VOLUME 85.3 fL (80.0-94.0); MEAN PLATELET VOLUME 7.5 fl (7.4-10.4); PLATELET 331 x1000/uL (130-400); RED BLOOD CELL COUNT 3.98 mill/uL (4.7-6.1); RED CELL DISTRIBUTION WIDTH 17.1 % (11.6-14.6)
[2018-07-04 07:40] LABS: CHLORIDE 104 mEq/L (98-107)
[2018-07-04] MEDS: BLOOD SUGAR DIAGNOSTIC STRIP TEST SCH ×4 (07:51→21:46)
[2018-07-04 08:00] VITALS: BP 106/72
[2018-07-04] MEDS: PANTOPRAZOLE SODIUM 40 MG/VIAL IV SCH (10:21)
[2018-07-04] MEDS: LEVOFLOXACIN 250MG TABLET PO SCH (10:22)
[2018-07-04] MEDS: LINEZOLID 600MG TABLET PO SCH (10:22)
[2018-07-04] MEDS: PYRIDOXINE HCL 50MG TABLET PO SCH (10:22)
[2018-07-04] MEDS: ENOXAPARIN 40MG/0.4ML SYR SUBCUT SCH (10:23)
[2018-07-04] MEDS: INSULIN LISPRO 100 UNITS/ML SUBCUT SCH ×4 (10:25→21:44)
[2018-07-04 12:00] VITALS: BP 122/66
[2018-07-04] MEDS ORDERED: SODIUM CHLORIDE 3% FOR INH 4ML UD NEB INH NR (13:15)
[2018-07-04 13:35] LABS: PLATELET ESTIMATE NORMAL
[2018-07-04] MEDS: ONDANSETRON HCL 4MG/2ML INJ IV PRN (14:10)
[2018-07-04] MEDS: MULTIVITAMINS,THER W-MINERALS TABLET PO SCH (14:10)
[2018-07-04 16:00] VITALS: BP 118/74
[2018-07-04] MEDS ORDERED: ONDANSETRON HCL 4MG/2ML INJ IV PRN (17:00)
[2018-07-04] MEDS: DEXT 5%/0.45% NACL 1000ML 1,000 ML IV SCH (19:06)
[2018-07-04] MEDS: ETHAMBUTOL HCL 400MG TABLET PO SCH ×2 (19:06→19:07)
[2018-07-04 20:00] VITALS: BP 130/67
[2018-07-05] VITALS: BP 125/70
[2018-07-05] MEDS: IPRATROPIUM/ALBUTEROL 0.5-3(2.5)MG/3ML NEB HHN PRN ×3 (01:00→14:45)
[2018-07-05] MEDS: ACETYLCYSTEINE 100MG/ML 10% VIAL 4ML INH SCH ×2 (01:00→09:30)
[2018-07-05] MEDS: DICYCLOMINE HCL 10MG CAPSULE PO SCH ×5 (01:23→23:57)
[2018-07-05] MEDS: ACETAMINOPHEN 325MG TABLET PO PRN ×2 (01:51→13:34)
[2018-07-05 04:00] VITALS: BP 124/70
[2018-07-05] MEDS: BLOOD SUGAR DIAGNOSTIC STRIP TEST SCH ×4 (06:18→21:32)
[2018-07-05 07:16] LABS: CHLORIDE 105 mEq/L (98-107)
[2018-07-05 07:29] LABS: HEMATOCRIT. 31.5 % (42.0-52.0); HEMOGLOBIN. 10.8 g/dL (14.0-18.0); MEAN CORPUSCULAR HEMOGLOBIN 29.4 pg (28.0-32.0); MEAN CORPUSCULAR VOLUME 85.8 fL (80.0-94.0); MEAN PLATELET VOLUME 7.2 fl (7.4-10.4); PLATELET 275 x1000/uL (130-400); RED BLOOD CELL COUNT 3.67 mill/uL (4.7-6.1); RED CELL DISTRIBUTION WIDTH 16.4 % (11.6-14.6)
[2018-07-05 07:37] LABS: CREATINE KINASE 16 IU/L (39-308)
[2018-07-05 08:00] VITALS: BP 124/58
[2018-07-05] MEDS: INSULIN LISPRO 100 UNITS/ML SUBCUT SCH ×4 (08:10→21:42)
[2018-07-05] MEDS: PANTOPRAZOLE SODIUM 40 MG/VIAL IV SCH (09:15)
[2018-07-05] MEDS: LINEZOLID 600MG TABLET PO SCH (09:15)
[2018-07-05] MEDS: ENOXAPARIN 40MG/0.4ML SYR SUBCUT SCH (09:15)
[2018-07-05] MEDS: PYRIDOXINE HCL 50MG TABLET PO SCH (09:15)
[2018-07-05 11:00] LABS: ATYPICAL LYMPHOCYTES 1; PLATELET ESTIMATE NORMAL
[2018-07-05] MEDS: LEVOFLOXACIN 250MG TABLET PO SCH (11:17)
[2018-07-05 12:00] VITALS: BP_SYST 103; BP_DIAS 5; BP_DIAS 56
[2018-07-05] MEDS: MULTIVITAMINS,THER W-MINERALS TABLET PO SCH (13:32)
[2018-07-05 16:00] VITALS: BP 130/61
[2018-07-05] MEDS: DEXT 5%/0.45% NACL 1000ML 1,000 ML IV SCH (17:31)
[2018-07-05] MEDS: ETHAMBUTOL HCL 400MG TABLET PO SCH ×2 (17:43→18:44)
[2018-07-05 20:00] VITALS: BP 127/74
[2018-07-06] VITALS: BP 125/67
[2018-07-06 04:00] VITALS: BP 125/68
[2018-07-06] MEDS: DICYCLOMINE HCL 10MG CAPSULE PO SCH ×3 (05:51→17:30)
[2018-07-06] MEDS: BLOOD SUGAR DIAGNOSTIC STRIP TEST SCH ×4 (05:53→21:50)
[2018-07-06 07:51] LABS: CHLORIDE 103 mEq/L (98-107)
[2018-07-06 08:00] VITALS: BP 113/53
[2018-07-06] MEDS: INSULIN LISPRO 100 UNITS/ML SUBCUT SCH ×4 (08:10→21:59)
[2018-07-06] MEDS: LINEZOLID 600MG TABLET PO SCH (09:29)
[2018-07-06] MEDS: PYRIDOXINE HCL 50MG TABLET PO SCH (09:29)
[2018-07-06] MEDS: ENOXAPARIN 40MG/0.4ML SYR SUBCUT SCH (09:29)
[2018-07-06] MEDS: PANTOPRAZOLE SODIUM 40 MG/VIAL IV SCH (09:30)
[2018-07-06] MEDS: IPRATROPIUM/ALBUTEROL 0.5-3(2.5)MG/3ML NEB HHN PRN ×2 (09:39→20:38)
[2018-07-06 12:00] VITALS: BP_SYST 111; BP_SYST 113; BP_DIAS 53; BP_DIAS 78
[2018-07-06] MEDS: LEVOFLOXACIN 250MG TABLET PO SCH (12:15)
[2018-07-06] MEDS: DEXT 5%/0.45% NACL 1000ML 1,000 ML IV SCH (12:15)
[2018-07-06] MEDS: MULTIVITAMINS,THER W-MINERALS TABLET PO SCH (13:08)
[2018-07-06] MEDS ORDERED: FUROSEMIDE 40MG/4ML VIAL IVP NR (15:00)
[2018-07-06 16:00] VITALS: BP 155/69
[2018-07-06 17:07] LABS: HEMATOCRIT. 35.1 % (42.0-52.0); HEMOGLOBIN. 11.9 g/dL (14.0-18.0); MEAN CORPUSCULAR HEMOGLOBIN 29.3 pg (28.0-32.0); MEAN CORPUSCULAR VOLUME 86.7 fL (80.0-94.0); PLATELET 357 x1000/uL (130-400); RED BLOOD CELL COUNT 4.05 mill/uL (4.7-6.1); RED CELL DISTRIBUTION WIDTH 17.5 % (11.6-14.6)
[2018-07-06] MEDS: ETHAMBUTOL HCL 400MG TABLET PO SCH (17:30)
[2018-07-06 20:00] VITALS: BP 127/67
[2018-07-06 20:47] LABS: NUCLEATED RED BLOOD CELLS 1 /100 WBC; PLATELET ESTIMATE NORMAL
[2018-07-07] VITALS: BP 119/62
[2018-07-07] MEDS: DICYCLOMINE HCL 10MG CAPSULE PO SCH ×4 (00:45→17:10)
[2018-07-07 04:00] VITALS: BP 114/63
[2018-07-07] MEDS: BLOOD SUGAR DIAGNOSTIC STRIP TEST SCH ×4 (06:55→21:00)
[2018-07-07 08:00] VITALS: BP 132/66
[2018-07-07] MEDS: LINEZOLID 600MG TABLET PO SCH (08:29)
[2018-07-07] MEDS: ENOXAPARIN 40MG/0.4ML SYR SUBCUT SCH (08:29)
[2018-07-07] MEDS: PANTOPRAZOLE SODIUM 40 MG/VIAL IV SCH (08:29)
[2018-07-07] MEDS: MULTIVITAMINS,THER W-MINERALS TABLET PO SCH (08:30)
[2018-07-07] MEDS: DEXT 5%/0.45% NACL 1000ML 1,000 ML IV SCH (08:35)
[2018-07-07] MEDS: INSULIN LISPRO 100 UNITS/ML SUBCUT SCH ×3 (08:35→17:20)
[2018-07-07] MEDS: PYRIDOXINE HCL 50MG TABLET PO SCH (09:00)
[2018-07-07 09:50] LABS: CHLORIDE 102 mEq/L (98-107)
[2018-07-07 10:00] LABS: PHOSPHORUS 2.4 mg/dL (2.5-4.9)
[2018-07-07] MEDS ORDERED: MAGNESIUM 2 G PREMIX 50 ML IV NR (11:00)
[2018-07-07] MEDS: LEVOFLOXACIN 250MG TABLET PO SCH (11:54)
[2018-07-07 12:00] VITALS: BP 131/60
[2018-07-07 16:00] VITALS: BP 132/68
[2018-07-07] MEDS: ETHAMBUTOL HCL 400MG TABLET PO SCH (17:10)
[2018-07-07 20:00] VITALS: BP 116/61
[2018-07-08] VITALS: BP 112/62
[2018-07-08 04:00] VITALS: BP 105/55
[2018-07-08] MEDS: DEXT 5%/0.45% NACL 1000ML 1,000 ML IV SCH ×2 (06:13→09:55)
[2018-07-08 06:24] LABS: HEMATOCRIT. 28.4 % (42.0-52.0); HEMOGLOBIN. 9.9 g/dL (14.0-18.0); MEAN CORPUSCULAR HEMOGLOBIN 30.3 pg (28.0-32.0); MEAN PLATELET VOLUME 7.2 fl (7.4-10.4); PLATELET 216 x1000/uL (130-400); RED BLOOD CELL COUNT 3.27 mill/uL (4.7-6.1)
[2018-07-08] MEDS: BLOOD SUGAR DIAGNOSTIC STRIP TEST SCH ×4 (07:06→21:10)
[2018-07-08] MEDS: DICYCLOMINE HCL 10MG CAPSULE PO SCH ×4 (07:10→23:53)
[2018-07-08 07:29] LABS: CHLORIDE 102 mEq/L (98-107)
[2018-07-08 08:00] VITALS: BP 108/58
[2018-07-08] MEDS: ENOXAPARIN 40MG/0.4ML SYR SUBCUT SCH (08:55)
[2018-07-08] MEDS: PANTOPRAZOLE SODIUM 40 MG/VIAL IV SCH (08:55)
[2018-07-08] MEDS: PYRIDOXINE HCL 50MG TABLET PO SCH (08:56)
[2018-07-08] MEDS: LINEZOLID 600MG TABLET PO SCH (08:56)
[2018-07-08] MEDS: MULTIVITAMINS,THER W-MINERALS TABLET PO SCH (11:57)
[2018-07-08] MEDS: LEVOFLOXACIN 250MG TABLET PO SCH (11:57)
[2018-07-08] MEDS: INSULIN LISPRO 100 UNITS/ML SUBCUT SCH ×5 (11:59→21:21)
[2018-07-08 12:00] VITALS: BP 142/70
[2018-07-08 12:53] LABS: PLATELET ESTIMATE NORMAL
[2018-07-08] MEDS: ETHAMBUTOL HCL 400MG TABLET PO SCH (16:59)
[2018-07-08 17:41] VITALS: BP 130/79
[2018-07-08 20:00] VITALS: BP 120/63
[2018-07-09] VITALS: BP 127/62
[2018-07-09 04:00] VITALS: BP 115/58
[2018-07-09] MEDS: DICYCLOMINE HCL 10MG CAPSULE PO SCH ×4 (05:15→23:24)
[2018-07-09] MEDS: BLOOD SUGAR DIAGNOSTIC STRIP TEST SCH ×4 (06:40→21:44)
[2018-07-09] MEDS: PANTOPRAZOLE SODIUM 40 MG/VIAL IV SCH (09:12)
[2018-07-09] MEDS: LINEZOLID 600MG TABLET PO SCH (09:13)
[2018-07-09] MEDS: PYRIDOXINE HCL 50MG TABLET PO SCH (09:13)
[2018-07-09] MEDS: ENOXAPARIN 40MG/0.4ML SYR SUBCUT SCH (09:13)
[2018-07-09] MEDS: INSULIN LISPRO 100 UNITS/ML SUBCUT SCH ×4 (09:20→21:52)
[2018-07-09] MEDS: LEVOFLOXACIN 250MG TABLET PO SCH (11:37)
[2018-07-09 12:00] VITALS: BP 118/99
[2018-07-09] MEDS: MULTIVITAMINS,THER W-MINERALS TABLET PO SCH (13:28)
[2018-07-09] MEDS: DEXT 5%/0.45% NACL 1000ML 1,000 ML IV SCH (14:47)
[2018-07-09 16:00] VITALS: BP 124/67
[2018-07-09] MEDS ORDERED: FUROSEMIDE 40MG/4ML VIAL IVP NR (17:00)
[2018-07-09] MEDS: ETHAMBUTOL HCL 400MG TABLET PO SCH (17:14)
[2018-07-09] MEDS: ALBUMIN HUMAN 12.5GM/50ML (25%) IV NR ×2 (18:17→23:24)
[2018-07-10 04:00] VITALS: BP 118/54
[2018-07-10] MEDS: DICYCLOMINE HCL 10MG CAPSULE PO SCH ×3 (07:00→17:25)
[2018-07-10] MEDS: BLOOD SUGAR DIAGNOSTIC STRIP TEST SCH ×4 (07:00→21:07)
[2018-07-10 08:03] VITALS: BP 107/56
[2018-07-10 08:17] LABS: HIV SCREEN 4G Non Reactive (Non Reactive)
[2018-07-10] MEDS: PANTOPRAZOLE SODIUM 40 MG/VIAL IV SCH (08:39)
[2018-07-10] MEDS: LINEZOLID 600MG TABLET PO SCH (08:39)
[2018-07-10] MEDS: PYRIDOXINE HCL 50MG TABLET PO SCH (08:39)
[2018-07-10] MEDS: ENOXAPARIN 40MG/0.4ML SYR SUBCUT SCH (08:39)
[2018-07-10] MEDS: INSULIN LISPRO 100 UNITS/ML SUBCUT SCH ×4 (08:57→21:29)
[2018-07-10] MEDS ORDERED: FUROSEMIDE 20MG/2ML VIAL IVP SCH ×2 (09:00→12:30)
[2018-07-10 09:15] LABS: HEMATOCRIT. 29.6 % (42.0-52.0); HEMOGLOBIN. 10.3 g/dL (14.0-18.0); MEAN CORPUSCULAR HEMOGLOBIN 30.8 pg (28.0-32.0); MEAN CORPUSCULAR VOLUME 88.4 fL (80.0-94.0); MEAN PLATELET VOLUME 6.8 fl (7.4-10.4); PLATELET 182 x1000/uL (130-400); RED BLOOD CELL COUNT 3.35 mill/uL (4.7-6.1); RED CELL DISTRIBUTION WIDTH 17.6 % (11.6-14.6)
[2018-07-10 09:55] LABS: CHLORIDE 102 mEq/L (98-107)
[2018-07-10 10:13] LABS: PLATELET ESTIMATE NORMAL
[2018-07-10] MEDS: LEVOFLOXACIN 250MG TABLET PO SCH (11:13)
[2018-07-10] MEDS: THROAT LOZENGES-BENZOCAINE/MENTH/CETYLPYRD CL LOZENGES MM PRN (11:19)
[2018-07-10 12:00] VITALS: BP 120/54
[2018-07-10] MEDS: MULTIVITAMINS,THER W-MINERALS TABLET PO SCH (12:38)
[2018-07-10 13:07] LABS: HEPATITIS B SURFACE ANTIGEN NEGATIVE
[2018-07-10 13:36] LABS: HEPATITIS A AB IGM NEGATIVE (NEGATIVE)
[2018-07-10 16:00] VITALS: BP 124/55
[2018-07-10] MEDS: DEXT 5%/0.45% NACL 1000ML 1,000 ML IV SCH (17:25)
[2018-07-10] MEDS: ETHAMBUTOL HCL 400MG TABLET PO SCH (17:26)
[2018-07-10 20:00] VITALS: BP 106/55
[2018-07-10] MEDS: ACETAMINOPHEN 325MG TABLET PO PRN (21:07)
[2018-07-11] VITALS: BP 118/56
[2018-07-11] MEDS: DICYCLOMINE HCL 10MG CAPSULE PO SCH ×4 (00:36→18:46)
[2018-07-11 04:00] VITALS: BP 124/64
[2018-07-11 05:23] LABS: HEMATOCRIT. 27.9 % (42.0-52.0); HEMOGLOBIN. 9.7 g/dL (14.0-18.0); MEAN CORPUSCULAR HEMOGLOBIN 30.9 pg (28.0-32.0); MEAN CORPUSCULAR VOLUME 88.8 fL (80.0-94.0); MEAN PLATELET VOLUME 6.9 fl (7.4-10.4); PLATELET 151 x1000/uL (130-400); RED BLOOD CELL COUNT 3.14 mill/uL (4.7-6.1); RED CELL DISTRIBUTION WIDTH 17.7 % (11.6-14.6)
[2018-07-11 05:43] LABS: CHLORIDE 102 mEq/L (98-107)
[2018-07-11] MEDS: BLOOD SUGAR DIAGNOSTIC STRIP TEST SCH ×4 (07:57→21:00)
[2018-07-11 08:00] VITALS: BP 99/49
[2018-07-11] MEDS ORDERED: FUROSEMIDE 40MG/4ML VIAL IVP SCH ×2 (09:00)
[2018-07-11] MEDS: PYRIDOXINE HCL 50MG TABLET PO SCH (09:03)
[2018-07-11] MEDS: INSULIN LISPRO 100 UNITS/ML SUBCUT SCH ×4 (09:05→21:00)
[2018-07-11] MEDS: PANTOPRAZOLE SODIUM 40 MG/VIAL IV SCH (09:07)
[2018-07-11] MEDS: ENOXAPARIN 40MG/0.4ML SYR SUBCUT SCH (09:12)
[2018-07-11 11:50] LABS: PLATELET ESTIMATE NORMAL
[2018-07-11 12:00] VITALS: BP 108/54
[2018-07-11] MEDS ORDERED: FUROSEMIDE 40MG/4ML VIAL IVP NR (14:15)
[2018-07-11] MEDS: DEXT 5%/0.45% NACL 1000ML 1,000 ML IV SCH (14:52)
[2018-07-11] MEDS: MULTIVITAMINS,THER W-MINERALS TABLET PO SCH (15:23)
[2018-07-11 16:00] VITALS: BP 125/61
[2018-07-11] MEDS: LEVOFLOXACIN 250MG TABLET PO SCH (17:12)
[2018-07-11] MEDS: LINEZOLID 600MG TABLET PO SCH (17:12)
[2018-07-11] MEDS: ETHAMBUTOL HCL 400MG TABLET PO SCH (18:46)
[2018-07-11 20:00] VITALS: BP 113/51
[2018-07-12 00:05] VITALS: BP 109/49
[2018-07-12] MEDS: DICYCLOMINE HCL 10MG CAPSULE PO SCH ×4 (00:26→17:10)
[2018-07-12 04:00] VITALS: BP 116/56
[2018-07-12 08:00] VITALS: BP 113/53
[2018-07-12] MEDS: BLOOD SUGAR DIAGNOSTIC STRIP TEST SCH ×4 (08:32→20:42)
[2018-07-12 08:59] LABS: HEMATOCRIT. 34.8 % (42.0-52.0); HEMOGLOBIN. 11.9 g/dL (14.0-18.0); MEAN CORPUSCULAR VOLUME 87.9 fL (80.0-94.0); MEAN PLATELET VOLUME 6.6 fl (7.4-10.4); PLATELET 176 x1000/uL (130-400); RED BLOOD CELL COUNT 3.96 mill/uL (4.7-6.1); RED CELL DISTRIBUTION WIDTH 18.2 % (11.6-14.6)
[2018-07-12 09:37] LABS: CHLORIDE 98 mEq/L (98-107)
[2018-07-12] MEDS: DEXT 5%/0.45% NACL 1000ML 1,000 ML IV SCH (09:56)
[2018-07-12] MEDS: LINEZOLID 600MG TABLET PO SCH (09:57)
[2018-07-12] MEDS: PYRIDOXINE HCL 50MG TABLET PO SCH (09:57)
[2018-07-12] MEDS: FUROSEMIDE 20MG/2ML VIAL IVP SCH (09:57)
[2018-07-12] MEDS: PANTOPRAZOLE SODIUM 40 MG/VIAL IV SCH (09:57)
[2018-07-12] MEDS: ENOXAPARIN 40MG/0.4ML SYR SUBCUT SCH (09:57)
[2018-07-12] MEDS: INSULIN LISPRO 100 UNITS/ML SUBCUT SCH ×4 (10:00→20:57)
[2018-07-12 10:26] LABS: PLATELET ESTIMATE NORMAL
[2018-07-12 12:00] VITALS: BP 120/64
[2018-07-12] MEDS: MULTIVITAMINS,THER W-MINERALS TABLET PO SCH (13:49)
[2018-07-12 16:00] VITALS: BP 113/71
[2018-07-12] MEDS: ETHAMBUTOL HCL 400MG TABLET PO SCH (17:10)
[2018-07-12] MEDS: LEVOFLOXACIN 250MG TABLET PO SCH (17:10)
[2018-07-12 20:00] VITALS: BP 121/61
[2018-07-12] MEDS: THROAT LOZENGES-BENZOCAINE/MENTH/CETYLPYRD CL LOZENGES MM PRN (20:56)
[2018-07-12] MEDS: ACETAMINOPHEN 325MG TABLET PO PRN (20:57)
[2018-07-13] VITALS: BP 116/64
[2018-07-13] MEDS: DICYCLOMINE HCL 10MG CAPSULE PO SCH ×5 (00:15→23:25)
[2018-07-13 04:00] VITALS: BP 120/69
[2018-07-13] MEDS: BLOOD SUGAR DIAGNOSTIC STRIP TEST SCH ×4 (07:45→21:57)
[2018-07-13 08:00] VITALS: BP 133/50
[2018-07-13 08:59] LABS: EOSINOPHILS % 2.9 % (0.0-5.0); HEMATOCRIT. 32.1 % (42.0-52.0); HEMOGLOBIN. 11.1 g/dL (14.0-18.0); LYMPHOCYTES % 16.5 % (20.0-50.0); MEAN CORPUSCULAR VOLUME 89.6 fL (80.0-94.0); MEAN PLATELET VOLUME 7.2 fl (7.4-10.4); NEUTROPHILS % 65.6 % (40.0-76.0); PLATELET 148 x1000/uL (130-400); RED BLOOD CELL COUNT 3.58 mill/uL (4.7-6.1)
[2018-07-13 09:10] LABS: CHLORIDE 99 mEq/L (98-107)
[2018-07-13] MEDS: DEXT 5%/0.45% NACL 1000ML 1,000 ML IV SCH (09:30)
[2018-07-13] MEDS: LINEZOLID 600MG TABLET PO SCH (09:30)
[2018-07-13] MEDS: PANTOPRAZOLE SODIUM 40 MG/VIAL IV SCH (09:30)
[2018-07-13] MEDS: PYRIDOXINE HCL 50MG TABLET PO SCH (09:30)
[2018-07-13] MEDS: FUROSEMIDE 20MG/2ML VIAL IVP SCH (09:30)
[2018-07-13] MEDS: INSULIN LISPRO 100 UNITS/ML SUBCUT SCH ×4 (09:31→23:24)
[2018-07-13] MEDS: ENOXAPARIN 40MG/0.4ML SYR SUBCUT SCH (09:31)
[2018-07-13 12:00] VITALS: BP 128/79
[2018-07-13] MEDS: MULTIVITAMINS,THER W-MINERALS TABLET PO SCH (14:13)
[2018-07-13] MEDS: LEVOFLOXACIN 250MG TABLET PO SCH (15:24)
[2018-07-13 16:00] VITALS: BP 104/53
[2018-07-13] MEDS: ETHAMBUTOL HCL 400MG TABLET PO SCH (18:23)
[2018-07-13 20:00] VITALS: BP 131/65
[2018-07-14] VITALS: BP 125/69
[2018-07-14 04:00] VITALS: BP 127/56
[2018-07-14] MEDS: BLOOD SUGAR DIAGNOSTIC STRIP TEST SCH ×4 (06:19→21:19)
[2018-07-14] MEDS: DICYCLOMINE HCL 10MG CAPSULE PO SCH ×4 (06:19→23:12)
[2018-07-14] MEDS: DEXT 5%/0.45% NACL 1000ML 1,000 ML IV SCH ×2 (06:19→21:19)
[2018-07-14 08:00] VITALS: BP 121/57
[2018-07-14] MEDS: PYRIDOXINE HCL 50MG TABLET PO SCH (08:18)
[2018-07-14] MEDS: PANTOPRAZOLE SODIUM 40 MG/VIAL IV SCH (08:18)
[2018-07-14] MEDS: LINEZOLID 600MG TABLET PO SCH (08:18)
[2018-07-14] MEDS: FUROSEMIDE 20MG/2ML VIAL IVP SCH (08:19)
[2018-07-14] MEDS: INSULIN LISPRO 100 UNITS/ML SUBCUT SCH ×4 (08:25→21:00)
[2018-07-14 09:00] LABS: CHLORIDE 101 mEq/L (98-107)
[2018-07-14 09:05] LABS: HEMATOCRIT. 30.2 % (42.0-52.0); HEMOGLOBIN. 10.8 g/dL (14.0-18.0); MEAN CORPUSCULAR HEMOGLOBIN 33.5 pg (28.0-32.0); MEAN CORPUSCULAR VOLUME 93.6 fL (80.0-94.0); MEAN PLATELET VOLUME 7.2 fl (7.4-10.4); PLATELET 120 x1000/uL (130-400); RED BLOOD CELL COUNT 3.23 mill/uL (4.7-6.1); RED CELL DISTRIBUTION WIDTH 17.7 % (11.6-14.6)
[2018-07-14 09:59] LABS: PLATELET ESTIMATE DECREASED
[2018-07-14] MEDS ORDERED: FUROSEMIDE 20MG/2ML VIAL IV SCH (11:00)
[2018-07-14 12:00] VITALS: BP 118/56
[2018-07-14] MEDS: MULTIVITAMINS,THER W-MINERALS TABLET PO SCH (13:15)
[2018-07-14] MEDS: LEVOFLOXACIN 250MG TABLET PO SCH (13:16)
[2018-07-14 16:00] VITALS: BP 119/55
[2018-07-14] MEDS: ETHAMBUTOL HCL 400MG TABLET PO SCH (17:33)
[2018-07-14 20:00] VITALS: BP 109/55
[2018-07-15] VITALS: BP 115/58
[2018-07-15 04:00] VITALS: BP 122/57
[2018-07-15] MEDS: BLOOD SUGAR DIAGNOSTIC STRIP TEST SCH ×4 (05:09→21:16)
[2018-07-15] MEDS: DICYCLOMINE HCL 10MG CAPSULE PO SCH ×3 (05:09→18:50)
[2018-07-15 08:00] VITALS: BP_SYST 119; BP_SYST 139; BP_DIAS 55; BP_DIAS 70
[2018-07-15] MEDS: PYRIDOXINE HCL 50MG TABLET PO SCH (09:32)
[2018-07-15] MEDS: LINEZOLID 600MG TABLET PO SCH (09:32)
[2018-07-15] MEDS: PANTOPRAZOLE SODIUM 40 MG/VIAL IV SCH (09:32)
[2018-07-15] MEDS: FUROSEMIDE 20MG/2ML VIAL IVP SCH (09:32)
[2018-07-15 12:00] VITALS: BP 118/59
[2018-07-15] MEDS: INSULIN LISPRO 100 UNITS/ML SUBCUT SCH ×4 (13:10→21:00)
[2018-07-15] MEDS: MULTIVITAMINS,THER W-MINERALS TABLET PO SCH (14:26)
[2018-07-15 16:00] VITALS: BP_SYST 120; BP_SYST 160; BP_DIAS 68; BP_DIAS 74
[2018-07-15] MEDS: LEVOFLOXACIN 250MG TABLET PO SCH (17:24)
[2018-07-15] MEDS: DEXT 5%/0.45% NACL 1000ML 1,000 ML IV SCH (17:24)
[2018-07-15] MEDS: ETHAMBUTOL HCL 400MG TABLET PO SCH (18:51)
[2018-07-15 20:00] VITALS: BP 164/91
[2018-07-15] MEDS: ACETAMINOPHEN 325MG TABLET PO PRN (21:25)
[2018-07-15] MEDS ORDERED: ACETAMINOPHEN 650MG SUPP PR PRN (22:15)
[2018-07-16] VITALS: BP 142/72
[2018-07-16] MEDS: DICYCLOMINE HCL 10MG CAPSULE PO SCH ×2 (00:26→05:40)
[2018-07-16 04:00] VITALS: BP 112/53
[2018-07-16] MEDS: BLOOD SUGAR DIAGNOSTIC STRIP TEST SCH (05:03)
[2018-07-16 06:18] LABS: BASOPHILS % 0.6 % (0.0-2.0); EOSINOPHILS % 3.1 % (0.0-5.0); HEMATOCRIT. 29.5 % (42.0-52.0); HEMOGLOBIN. 10.4 g/dL (14.0-18.0); MEAN CORPUSCULAR HEMOGLOBIN 31.8 pg (28.0-32.0); MEAN CORPUSCULAR VOLUME 90.1 fL (80.0-94.0); MEAN PLATELET VOLUME 7.6 fl (7.4-10.4); MONOCYTES % 13.3 % (2.0-8.0); PLATELET 93 x1000/uL (130-400); RED BLOOD CELL COUNT 3.27 mill/uL (4.7-6.1)
[2018-07-16 06:51] LABS: CHLORIDE 101 mEq/L (98-107)
[2018-07-16 08:00] VITALS: BP_SYST 120; BP_SYST 165; BP_DIAS 67; BP_DIAS 75
[2018-07-16] MEDS: FUROSEMIDE 20MG/2ML VIAL IVP SCH (09:07)
[2018-07-16] MEDS: PANTOPRAZOLE SODIUM 40 MG/VIAL IV SCH (09:07)
[2018-07-16] MEDS: LINEZOLID 600MG TABLET PO SCH (09:08)
[2018-07-16] MEDS: PYRIDOXINE HCL 50MG TABLET PO SCH (09:08)
[2018-07-16 11:04] VITALS: BP 165/75
== END 2018-07-16 13:30 | disposition home or self-care (01) | DRG 853 ==
LOC: 6WST 11:45 → MICUNO 06-26 16:36 → 5WST 07-01 01:39 → 7WST 07-02 20:50
PROVIDERS: ADMIT Internal Medicine Critical Care Medicine; ATTEND Internal Medicine Critical Care Medicine
PROC: 0W9 Anatomical Regions, General, Drainage (ICD-10-PCS; principal; 2018-06-26)
PROC: 0BBK0ZX Excision of Right Lung, Open Approach, Diagnostic (ICD-10-PCS; 2018-06-26)
PROC: 0BJ08ZZ Inspection of Tracheobronchial Tree, Via Natural or Artificial Opening Endoscopic (ICD-10-PCS; 2018-06-26)
PROC: 0BBC0ZZ Excision of Right Upper Lung Lobe, Open Approach (ICD-10-PCS; 2018-06-26)
PROC: 3E0T3BZ Introduction of Anesthetic Agent into Peripheral Nerves and Plexi, Percutaneous Approach (ICD-10-PCS; 2018-06-26)
PROC: 0W9900Z Drainage of Right Pleural Cavity with Drainage Device, Open Approach (ICD-10-PCS; 2018-06-26)
PROC: 0BNC0ZZ Release Right Upper Lung Lobe, Open Approach (ICD-10-PCS; 2018-06-26)
PROC: 07B70ZX Excision of Thorax Lymphatic, Open Approach, Diagnostic (ICD-10-PCS; 2018-06-26)
PROC: 0DB68ZX Excision of Stomach, Via Natural or Artificial Opening Endoscopic, Diagnostic (ICD-10-PCS; 2018-07-01)
DX: A41.9 Sepsis, unspecified organism (principal); J96.00 Acute respiratory failure, unspecified whether with hypoxia or hypercapnia; J69.0 Pneumonitis due to inhalation of food and vomit; E43 Unspecified severe protein-calorie malnutrition; A15.0 Tuberculosis of lung; E86.0 Dehydration; I10 Essential (primary) hypertension; E78.5 Hyperlipidemia, unspecified; R13.10 Dysphagia, unspecified; K74.60 Unspecified cirrhosis of liver; R59.0 Localized enlarged lymph nodes; J32.0 Chronic maxillary sinusitis; J31.0 Chronic rhinitis; J44.9 Chronic obstructive pulmonary disease, unspecified; K80.20 Calculus of gallbladder without cholecystitis without obstruction; K29.70 Gastritis, unspecified, without bleeding; K44.9 Diaphragmatic hernia without obstruction or gangrene; E11.65 Type 2 diabetes mellitus with hyperglycemia; G24.9 Dystonia, unspecified; J38.00 Paralysis of vocal cords and larynx, unspecified; Z85.46 Personal history of malignant neoplasm of prostate; Z68.25 Body mass index [BMI] 25.0-25.9, adult; Z90.49 Acquired absence of other specified parts of digestive tract
CPT/HCPCS: 36415; 36600; 70491; 71045; 71260; 76700; 80048; 80076; 82105; 82375; 82550; 82553; 82805; 82962; 83735; 83880; 84100; 84145; 84443; 84484; 85027; 86480; 86705; 86709; 86803; 86850; 86900; 86920; 87070; 87075; 87102; 87116; 87340; 87389; 88305; 88307; 88312; 88313; 88331; 92610; 93005; 93970; 94640; C1893; C9113; J0171; J0330; J0692; J1170; J1200; J1650; J1815; J1885; J1940; J2250; J2405; J2704; J2710; J3010; J3475; J3490; J7050; J7060; J7131; J7608; J7620; P9047; Q9967

== ENCOUNTER 2018-08-22 19:57 | Inpatient (IN) | payer MEDICARE, MEDICAID ==
[~2018-08-22] VITALS: Ht 170.2 cm; Wt 66.4 kg
[2018-08-22] MEDS ORDERED: LEVOFLOXACIN 750MG PREMIX 150 ML IV ONE (23:00)
[2018-08-22] MEDS ORDERED: NYSTATIN 100,000 UNITS/ML 5ML UDC SSW ONE (23:00)
[2018-08-22] MEDS ORDERED: SODIUM CHLORIDE 0.9% 1000ML BAG (SEPSIS BOLUS) IV ONE (23:00)
[2018-08-22 23:12] LABS: BASOPHILS % 0.4 % (0.0-2.0); EOSINOPHILS % 0.5 % (0.0-5.0); HEMATOCRIT. 34.4 % (42.0-52.0); HEMOGLOBIN. 11.6 g/dL (14.0-18.0); LYMPHOCYTES % 18.6 % (20.0-50.0); MEAN CORPUSCULAR HEMOGLOBIN 32.1 pg (28.0-32.0); MEAN CORPUSCULAR VOLUME 95.1 fL (80.0-94.0); MONOCYTES % 5.5 % (2.0-8.0); RED BLOOD CELL COUNT 3.62 mill/uL (4.7-6.1); RED CELL DISTRIBUTION WIDTH 17.8 % (11.6-14.6)
[2018-08-22 23:16] LABS: INR 1.4; PARTIAL THROMBOPLASTIN TIME 38.8 sec (23.4-31.0); PROTHROMBIN TIME 14.1 sec (9.6-11.0)
[2018-08-22 23:17] LABS: CHLORIDE 110 mEq/L (98-107)
[2018-08-23 00:53] LABS: CLARITY URINE CLEAR (CLEAR); COLOR URINE YELLOW (YELLOW); KETONES URINE TRACE (NEGATIVE); LEUKOCYTE ESTERASE URINE 1+ (NEGATIVE); NITRITE URINE NEGATIVE (NEGATIVE); OCCULT BLOOD URINE NEGATIVE (NEGATIVE); PROTEIN URINE NEGATIVE (NEGATIVE); UROBILINOGEN URINE 0.2 E.U./dL (0.2-1.0)
[2018-08-23 03:00] VITALS: BP 127/58
[2018-08-23 03:37] VITALS: BP 127/58
[2018-08-23] MEDS ORDERED: ACETAMINOPHEN 325MG TABLET PO PRN (06:45)
[2018-08-23] MEDS ORDERED: HYDRALAZINE 20MG/ML VIAL IV PRN (06:45)
[2018-08-23] MEDS ORDERED: MAGNESIUM/ALUMINUM HYDROXIDE/SIMETHICONE 30ML UDC PO PRN (06:45)
[2018-08-23] MEDS ORDERED: GUAIFENESIN 200MG/10ML SUGAR FREE UDC PO PRN (06:45)
[2018-08-23] MEDS ORDERED: ENOXAPARIN 40MG/0.4ML SYR SUBCUT SCH (06:45)
[2018-08-23] MEDS ORDERED: LORAZEPAM 2MG/ML CPJ IV PRN (06:45)
[2018-08-23] MEDS ORDERED: HYDROCODONE/ACETAMINOPHEN 10/325MG TABLET PO PRN (06:45)
[2018-08-23] MEDS ORDERED: CLONIDINE 0.1MG TABLET PO PRN (06:45)
[2018-08-23] MEDS ORDERED: HYDROMORPHONE HCL/PF 2MG/ML CPJ IV PRN (06:45)
[2018-08-23] MEDS ORDERED: IPRATROPIUM/ALBUTEROL 0.5-3(2.5)MG/3ML NEB INH PRN (06:45)
[2018-08-23] MEDS ORDERED: DEXTROSE 50% WATER 50ML SYRINGE IV PRN (06:45)
[2018-08-23] MEDS ORDERED: DIPHENHYDRAMINE 50MG/ML VIAL IV PRN (06:45)
[2018-08-23] MEDS ORDERED: NA PHOS,M-B/NA PHOS,DI-BA ENEMA 118ML PR PRN (06:45)
[2018-08-23] MEDS: BLOOD SUGAR DIAGNOSTIC STRIP TEST SCH ×4 (07:56→21:17)
[2018-08-23] MEDS: INSULIN LISPRO 100 UNITS/ML SUBCUT SCH ×4 (07:56→21:00)
[2018-08-23 08:00] VITALS: BP 108/47
[2018-08-23] MEDS ORDERED: DOCUSATE SODIUM 100MG CAPSULE PO PRN (09:00)
[2018-08-23] MEDS: ASPIRIN 81MG EC TABLET PO SCH (09:16)
[2018-08-23 12:00] VITALS: BP 102/53
[2018-08-23] MEDS ORDERED: LEVO750T46 MT (13:10)
[2018-08-23] MEDS ORDERED: LINE600T32 PO (13:10)
[2018-08-23] MEDS ORDERED: ISON300T19 PO (13:10)
[2018-08-23] MEDS ORDERED: PYRI-5 PO (13:11)
[2018-08-23] MEDS ORDERED: ETHA400T8 PO (13:11)
[2018-08-23 16:00] VITALS: BP 104/51
[2018-08-23 17:37] LABS: CREATINE KINASE MB FRACTION 1.3 ng/mL (0.5-3.6)
[2018-08-23 17:38] LABS: CREATINE KINASE 17 IU/L (39-308)
[2018-08-23] MEDS: LEVOFLOXACIN 250MG TABLET PO SCH (17:38)
[2018-08-23] MEDS: ISONIAZID 300MG TABLET PO SCH (17:38)
[2018-08-23] MEDS: LINEZOLID 600MG TABLET PO SCH (17:38)
[2018-08-23] MEDS: ETHAMBUTOL HCL 400MG TABLET PO SCH (17:38)
[2018-08-23] MEDS: PYRIDOXINE HCL 50MG TABLET PO SCH (17:39)
[2018-08-23 20:00] VITALS: BP 105/56
[2018-08-24] VITALS (7 sets, daily range): BP systolic 91–110; BP diastolic 46–63
[2018-08-24 00:51] LABS: CREATINE KINASE MB FRACTION 1.2 ng/mL (0.5-3.6)
[2018-08-24] MEDS: NYSTATIN 100,000 UNITS/ML 5ML UDC SSW SCH ×4 (01:10→17:47)
[2018-08-24] MEDS: SODIUM CHLORIDE 0.9% INJ 3ML FLUSH IVF SCH ×5 (01:12→20:15)
[2018-08-24] MEDS: BLOOD SUGAR DIAGNOSTIC STRIP TEST SCH ×4 (06:11→20:10)
[2018-08-24 06:16] LABS: BASOPHILS % 0.2 % (0.0-2.0); EOSINOPHILS % 1.2 % (0.0-5.0); HEMATOCRIT. 31.2 % (42.0-52.0); HEMOGLOBIN. 10.8 g/dL (14.0-18.0); MEAN CORPUSCULAR HEMOGLOBIN 32.4 pg (28.0-32.0); MEAN CORPUSCULAR VOLUME 93.9 fL (80.0-94.0); MEAN PLATELET VOLUME 9.8 fl (7.4-10.4); MONOCYTES % 5.2 % (2.0-8.0); NEUTROPHILS % 62.4 % (40.0-76.0); RED BLOOD CELL COUNT 3.33 mill/uL (4.7-6.1); RED CELL DISTRIBUTION WIDTH 17.7 % (11.6-14.6)
[2018-08-24 06:34] LABS: CHLORIDE 113 mEq/L (98-107)
[2018-08-24 06:44] LABS: HDL CHOLESTEROL 28 mg/dL (40-59); T4 FREE 0.94 ng/dL (0.76-1.46)
[2018-08-24 06:47] LABS: LDL CHOLESTEROL 20 mg/dL (5-100)
[2018-08-24] MEDS: INSULIN LISPRO 100 UNITS/ML SUBCUT SCH ×4 (07:27→20:10)
[2018-08-24 07:36] LABS: PLATELET 29 x1000/uL (130-400)
[2018-08-24] MEDS: ISONIAZID 300MG TABLET PO SCH (08:53)
[2018-08-24] MEDS: LINEZOLID 600MG TABLET PO SCH (08:53)
[2018-08-24] MEDS: ETHAMBUTOL HCL 400MG TABLET PO SCH (08:53)
[2018-08-24] MEDS: PYRIDOXINE HCL 50MG TABLET PO SCH (08:54)
[2018-08-24] MEDS: LEVOFLOXACIN 250MG TABLET PO SCH (08:54)
[2018-08-24] MEDS: ASPIRIN 81MG EC TABLET PO SCH (08:54)
[2018-08-24 09:48] LABS: PLATELET ESTIMATE MARKEDLY DECREASED
[2018-08-24] MEDS: ONDANSETRON HCL 4MG/2ML INJ IV PRN (20:14)
[2018-08-25] VITALS (7 sets, daily range): BP systolic 93–123; BP diastolic 43–74
[2018-08-25] MEDS: NYSTATIN 100,000 UNITS/ML 5ML UDC SSW SCH ×5 (00:20→23:29)
[2018-08-25] MEDS: SODIUM CHLORIDE 0.9% INJ 3ML FLUSH IVF SCH ×3 (05:19→21:22)
[2018-08-25] MEDS: BLOOD SUGAR DIAGNOSTIC STRIP TEST SCH ×4 (06:46→20:37)
[2018-08-25] MEDS: INSULIN LISPRO 100 UNITS/ML SUBCUT SCH ×4 (08:10→20:37)
[2018-08-25] MEDS: LINEZOLID 600MG TABLET PO SCH (09:35)
[2018-08-25] MEDS: ISONIAZID 300MG TABLET PO SCH (09:35)
[2018-08-25] MEDS: PYRIDOXINE HCL 50MG TABLET PO SCH (09:35)
[2018-08-25] MEDS: ETHAMBUTOL HCL 400MG TABLET PO SCH (09:35)
[2018-08-25] MEDS: ASPIRIN 81MG EC TABLET PO SCH (09:35)
[2018-08-25] MEDS: BENZONATATE 100MG CAPSULE PO SCH ×3 (10:37→21:22)
[2018-08-25] MEDS: LEVOFLOXACIN 250MG TABLET PO SCH (11:06)
[2018-08-25] MEDS: ONDANSETRON HCL 4MG/2ML INJ IV PRN (13:27)
[2018-08-25 16:42] LABS: PLATELET 32 x1000/uL (130-400)
[2018-08-26] VITALS: BP 98/53
[2018-08-26 04:00] VITALS: BP 100/52
[2018-08-26] MEDS: NYSTATIN 100,000 UNITS/ML 5ML UDC SSW SCH ×3 (05:25→18:09)
[2018-08-26] MEDS: SODIUM CHLORIDE 0.9% INJ 3ML FLUSH IVF SCH ×3 (05:25→21:03)
[2018-08-26] MEDS: ONDANSETRON HCL 4MG/2ML INJ IV PRN (05:26)
[2018-08-26] MEDS: BENZONATATE 100MG CAPSULE PO SCH ×3 (05:26→21:03)
[2018-08-26] MEDS: BLOOD SUGAR DIAGNOSTIC STRIP TEST SCH ×4 (06:59→21:04)
[2018-08-26] MEDS: INSULIN LISPRO 100 UNITS/ML SUBCUT SCH ×4 (07:24→21:00)
[2018-08-26 08:00] VITALS: BP 98/51
[2018-08-26] MEDS: ETHAMBUTOL HCL 400MG TABLET PO SCH (09:23)
[2018-08-26] MEDS: LINEZOLID 600MG TABLET PO SCH (09:23)
[2018-08-26] MEDS: PYRIDOXINE HCL 50MG TABLET PO SCH (09:23)
[2018-08-26] MEDS: ISONIAZID 300MG TABLET PO SCH (09:23)
[2018-08-26] MEDS: ASPIRIN 81MG EC TABLET PO SCH (09:23)
[2018-08-26 12:00] VITALS: BP 126/82
[2018-08-26] MEDS: LEVOFLOXACIN 250MG TABLET PO SCH (13:19)
[2018-08-26] MEDS: FOLIC ACID 1MG TABLET PO SCH (14:54)
[2018-08-26] MEDS: THIAMINE HCL 100MG TABLET PO SCH (14:54)
[2018-08-26] MEDS: MULTIVITAMINS,THER W-MINERALS TABLET PO SCH (14:54)
[2018-08-26 16:00] VITALS: BP 107/52
[2018-08-26 20:00] VITALS: BP 121/60
[2018-08-27] VITALS: BP 104/56
[2018-08-27] MEDS: NYSTATIN 100,000 UNITS/ML 5ML UDC SSW SCH ×5 (00:18→22:16)
[2018-08-27 04:00] VITALS: BP 104/52
[2018-08-27] MEDS: SODIUM CHLORIDE 0.9% INJ 3ML FLUSH IVF SCH ×3 (06:09→22:16)
[2018-08-27] MEDS: BLOOD SUGAR DIAGNOSTIC STRIP TEST SCH ×4 (06:09→21:00)
[2018-08-27] MEDS: BENZONATATE 100MG CAPSULE PO SCH ×3 (06:09→22:16)
[2018-08-27] MEDS: INSULIN LISPRO 100 UNITS/ML SUBCUT SCH ×4 (08:10→21:00)
[2018-08-27 08:15] VITALS: BP 106/53
[2018-08-27 09:26] LABS: BASOPHILS % 0.4 % (0.0-2.0); EOSINOPHILS % 0.9 % (0.0-5.0); HEMATOCRIT. 30.2 % (42.0-52.0); HEMOGLOBIN. 10.3 g/dL (14.0-18.0); LYMPHOCYTES % 30.1 % (20.0-50.0); MEAN CORPUSCULAR HEMOGLOBIN 32.4 pg (28.0-32.0); MEAN CORPUSCULAR VOLUME 94.8 fL (80.0-94.0); MEAN PLATELET VOLUME 10.2 fl (7.4-10.4); MONOCYTES % 3.8 % (2.0-8.0); NEUTROPHILS % 64.8 % (40.0-76.0); RED BLOOD CELL COUNT 3.18 mill/uL (4.7-6.1); RED CELL DISTRIBUTION WIDTH 16.9 % (11.6-14.6)
[2018-08-27] MEDS: ETHAMBUTOL HCL 400MG TABLET PO SCH (09:47)
[2018-08-27] MEDS: ASPIRIN 81MG EC TABLET PO SCH (09:47)
[2018-08-27] MEDS: THIAMINE HCL 100MG TABLET PO SCH (09:47)
[2018-08-27] MEDS: MULTIVITAMINS,THER W-MINERALS TABLET PO SCH (09:47)
[2018-08-27] MEDS: ISONIAZID 300MG TABLET PO SCH (09:47)
[2018-08-27] MEDS: LINEZOLID 600MG TABLET PO SCH (09:47)
[2018-08-27] MEDS: PYRIDOXINE HCL 50MG TABLET PO SCH (09:48)
[2018-08-27] MEDS: FOLIC ACID 1MG TABLET PO SCH (09:48)
[2018-08-27 09:49] LABS: PLATELET 39 x1000/uL (130-400)
[2018-08-27 10:02] LABS: PLATELET ESTIMATE MARKEDLY DECREASED
[2018-08-27] MEDS: LEVOFLOXACIN 250MG TABLET PO SCH (11:50)
[2018-08-27 14:25] VITALS: BP 93/50
[2018-08-27 16:30] VITALS: BP 106/57
[2018-08-27 20:00] VITALS: BP 98/57
[2018-08-28] VITALS (10 sets, daily range): BP systolic 95–109; BP diastolic 42–54
[2018-08-28] MEDS: BENZONATATE 100MG CAPSULE PO SCH ×3 (06:17→22:28)
[2018-08-28] MEDS: SODIUM CHLORIDE 0.9% INJ 3ML FLUSH IVF SCH ×3 (06:17→22:28)
[2018-08-28] MEDS: NYSTATIN 100,000 UNITS/ML 5ML UDC SSW SCH ×3 (06:27→17:23)
[2018-08-28] MEDS: BLOOD SUGAR DIAGNOSTIC STRIP TEST SCH ×4 (06:31→22:28)
[2018-08-28 06:34] LABS: BASOPHILS % 0.3 % (0.0-2.0); EOSINOPHILS % 0.4 % (0.0-5.0); HEMATOCRIT. 28.2 % (42.0-52.0); HEMOGLOBIN. 9.1 g/dL (14.0-18.0); MEAN CORPUSCULAR HEMOGLOBIN 31.9 pg (28.0-32.0); MEAN CORPUSCULAR VOLUME 98.6 fL (80.0-94.0); MEAN PLATELET VOLUME 10.4 fl (7.4-10.4); MONOCYTES % 4.4 % (2.0-8.0); NEUTROPHILS % 77.9 % (40.0-76.0); RED BLOOD CELL COUNT 2.86 mill/uL (4.7-6.1); RED CELL DISTRIBUTION WIDTH 16.5 % (11.6-14.6)
[2018-08-28 06:40] LABS: PLATELET 6 x1000/uL (130-400)
[2018-08-28] MEDS: INSULIN LISPRO 100 UNITS/ML SUBCUT SCH ×4 (08:10→22:37)
[2018-08-28] MEDS: ASPIRIN 81MG EC TABLET PO SCH (11:22)
[2018-08-28] MEDS: PYRIDOXINE HCL 50MG TABLET PO SCH (11:22)
[2018-08-28] MEDS: THIAMINE HCL 100MG TABLET PO SCH (11:22)
[2018-08-28] MEDS: LINEZOLID 600MG TABLET PO SCH (11:23)
[2018-08-28] MEDS: ISONIAZID 300MG TABLET PO SCH (11:23)
[2018-08-28] MEDS: ETHAMBUTOL HCL 400MG TABLET PO SCH (11:23)
[2018-08-28] MEDS: FOLIC ACID 1MG TABLET PO SCH (11:23)
[2018-08-28] MEDS: MULTIVITAMINS,THER W-MINERALS TABLET PO SCH (11:23)
[2018-08-28] MEDS: LEVOFLOXACIN 250MG TABLET PO SCH (11:23)
[2018-08-28] MEDS ORDERED: FENTANYL CITRATE/PF 50MCG/ML 2ML VIAL ONE (13:47)
[2018-08-28] MEDS ORDERED: MIDAZOLAM HCL 5 MG/5 ML VIAL ONE (13:47)
[2018-08-28] MEDS ORDERED: BACTERIOSTATIC SODIUM CHLORIDE 0.9% 30ML VIAL IJ ONE (13:49)
[2018-08-28] MEDS ORDERED: MIDAZOLAM HCL 5 MG/5 ML VIAL IV PRN (14:41)
[2018-08-28] MEDS ORDERED: FENTANYL CITRATE/PF 50MCG/ML 2ML VIAL IV PRN (14:42)
[2018-08-29] VITALS: BP 110/54
[2018-08-29] MEDS: NYSTATIN 100,000 UNITS/ML 5ML UDC SSW SCH ×5 (00:51→23:43)
[2018-08-29 04:00] VITALS: BP 95/54
[2018-08-29] MEDS: SODIUM CHLORIDE 0.9% INJ 3ML FLUSH IVF SCH ×3 (05:51→23:37)
[2018-08-29] MEDS: BENZONATATE 100MG CAPSULE PO SCH ×3 (05:51→23:44)
[2018-08-29] MEDS: BLOOD SUGAR DIAGNOSTIC STRIP TEST SCH ×4 (05:51→23:44)
[2018-08-29] MEDS: INSULIN LISPRO 100 UNITS/ML SUBCUT SCH ×4 (06:01→23:56)
[2018-08-29 08:00] VITALS: BP 115/52
[2018-08-29] MEDS: THIAMINE HCL 100MG TABLET PO SCH (08:47)
[2018-08-29] MEDS: MULTIVITAMINS,THER W-MINERALS TABLET PO SCH (08:47)
[2018-08-29] MEDS: PYRIDOXINE HCL 50MG TABLET PO SCH (08:47)
[2018-08-29] MEDS: ASPIRIN 81MG EC TABLET PO SCH (08:47)
[2018-08-29] MEDS: ISONIAZID 300MG TABLET PO SCH (08:47)
[2018-08-29] MEDS: FOLIC ACID 1MG TABLET PO SCH (08:48)
[2018-08-29] MEDS: ETHAMBUTOL HCL 400MG TABLET PO SCH (08:56)
[2018-08-29] MEDS: LINEZOLID 600MG TABLET PO SCH (08:56)
[2018-08-29] MEDS: LEVOFLOXACIN 250MG TABLET PO SCH (12:37)
[2018-08-29 20:00] VITALS: BP 97/44
[2018-08-29 23:31] LABS: HEMATOCRIT 30.2 % (42.0-52.0); HEMOGLOBIN 9.9 g/dL (14.0-18.0); MEAN CORPUSCULAR HEMOGLOBIN 32.8 pg (28.0-32.0); MEAN CORPUSCULAR VOLUME 99.5 fL (80.0-94.0); PLATELET 51 x1000/uL (130-400); RED BLOOD CELL COUNT 3.03 mill/uL (4.7-6.1); RED CELL DISTRIBUTION WIDTH 17.2 % (11.6-14.6)
[2018-08-30] VITALS (70 sets, daily range): BP systolic 56–161; BP diastolic 25–96
[2018-08-30] MEDS: ONDANSETRON HCL 4MG/2ML INJ IV PRN (00:53)
[2018-08-30] MEDS: BENZONATATE 100MG CAPSULE PO SCH ×3 (06:00→21:36)
[2018-08-30] MEDS: NYSTATIN 100,000 UNITS/ML 5ML UDC SSW SCH ×3 (06:00→18:00)
[2018-08-30] MEDS: INSULIN LISPRO 100 UNITS/ML SUBCUT SCH ×4 (06:02→21:10)
[2018-08-30] MEDS: BLOOD SUGAR DIAGNOSTIC STRIP TEST SCH ×4 (06:02→21:04)
[2018-08-30] MEDS: SODIUM CHLORIDE 0.9% INJ 3ML FLUSH IVF SCH ×3 (06:24→21:12)
[2018-08-30 07:18] LABS: BG CARBOXYHEMOGLOBIN 0.3 % (0.5-1.5); BG DEOXYHEMOGLOBIN 1.5 % (0.0-5.0); BG FRACTION INSPIRED OXYGEN 100; BG METHEMOGLOBIN 0.8 % (0.0-1.5); BG OXYGEN SATURATION 98.5 % (92.0-98.5); BG OXYHEMOGLOBIN 97.4 % (94.0-97.0); BG PCO2 30.1 mmHg (35.0-45.0); BG PH < 6.686 (7.350-7.450); BG PO2 284.6 mmHg (75.0-100.0); BG SAMPLE SITE RIGHT FEMORAL; BG TOTAL HEMOGLOBIN 8.8 g/dL (12.0-18.0); BG VENT MODE MASK - NRB
[2018-08-30] MEDS ORDERED: ETOMIDATE 2MG/ML 10ML VIAL IV ONE (08:15)
[2018-08-30] MEDS ORDERED: SUCCINYLCHOLINE CHLORIDE 200MG/10ML IV ONE (08:15)
[2018-08-30 09:24] LABS: BG CARBOXYHEMOGLOBIN 0.3 % (0.5-1.5); BG DEOXYHEMOGLOBIN 0.6 % (0.0-5.0); BG FRACTION INSPIRED OXYGEN 100; BG METHEMOGLOBIN 0.7 % (0.0-1.5); BG OXYGEN SATURATION 99.4 % (92.0-98.5); BG OXYHEMOGLOBIN 98.4 % (94.0-97.0); BG PCO2 33.2 mmHg (35.0-45.0); BG PH < 6.680 (7.350-7.450); BG PO2 508.7 mmHg (75.0-100.0); BG SAMPLE SITE RIGHT FEMORAL; BG TIDAL VOLUME(mL) 500 mL; BG TOTAL HEMOGLOBIN 7.7 g/dL (12.0-18.0); BG VENT MODE VENT - A/C; BG VENT RATE 14 set
[2018-08-30] MEDS ORDERED: SODIUM BICARBONATE 8.4% 1 MEQ/ML 50ML SYR IV ONE (10:15)
[2018-08-30] MEDS: NOREPINEPHRINE 16 MG in DEXT 5% WATER 234 ML IV PRN ×2 (10:22→18:48)
[2018-08-30] MEDS: MULTIVITAMINS,THER W-MINERALS TABLET PO SCH (11:34)
[2018-08-30] MEDS: THIAMINE HCL 100MG TABLET PO SCH (11:34)
[2018-08-30] MEDS: FOLIC ACID 1MG TABLET PO SCH (11:35)
[2018-08-30] MEDS: ASPIRIN 81MG EC TABLET PO SCH (11:35)
[2018-08-30] MEDS: LEVOFLOXACIN 250MG TABLET PO SCH (11:36)
[2018-08-30 12:20] LABS: BG CARBOXYHEMOGLOBIN 0.3 % (0.5-1.5); BG DEOXYHEMOGLOBIN 2.9 % (0.0-5.0); BG FRACTION INSPIRED OXYGEN 50; BG METHEMOGLOBIN 0.8 % (0.0-1.5); BG OXYGEN SATURATION 97.1 % (92.0-98.5); BG PCO2 30.6 mmHg (35.0-45.0); BG PH < 6.680 (7.350-7.450); BG PO2 167.2 mmHg (75.0-100.0); BG SAMPLE SITE RIGHT BRACHIAL; BG TIDAL VOLUME(mL) 500 mL; BG TOTAL HEMOGLOBIN 8.5 g/dL (12.0-18.0); BG VENT MODE VENT - A/C; BG VENT RATE 20 set
[2018-08-30] MEDS ORDERED: INSULIN REGULAR (HUMULIN R) 300UNITS/3ML IV NR ×2 (12:45→19:19)
[2018-08-30] MEDS ORDERED: DEXTROSE 50% WATER 50ML SYRINGE IV ONE (12:45)
[2018-08-30] MEDS: PHENYLEPHRINE 40 MG in DEXT 5% WATER 246 ML IV PRN ×3 (12:57→20:45)
[2018-08-30] MEDS: SODIUM BICARBONATE 150 MEQ in DEXTROSE 5% WATER 1,000 ML IV SCH ×2 (13:03→20:55)
[2018-08-30] MEDS ORDERED: CALCIUM GLUCONATE 1,000 MG in DEXT 5% WATER 90 ML IV NR ×2 (13:30→20:30)
[2018-08-30] MEDS: VASOPRESSIN 10 UNIT in SODIUM CHLORIDE 0.9% 99.5 ML IV PRN ×3 (13:52→22:17)
[2018-08-30] MEDS ORDERED: VANCOMYCIN 1 G PREMIX 200 ML IV SCH (14:00)
[2018-08-30] MEDS: IPRATROPIUM/ALBUTEROL 0.5-3(2.5)MG/3ML NEB INH SCH ×3 (14:25→21:00)
[2018-08-30] MEDS ORDERED: VANCOMYCIN 1500MG in DEXTROSE 5% WATER 250ML IV NR (16:00)
[2018-08-30] MEDS: PYRIDOXINE HCL 50MG TABLET PO SCH (16:37)
[2018-08-30] MEDS: ISONIAZID 300MG TABLET PO SCH (16:37)
[2018-08-30] MEDS: ETHAMBUTOL HCL 400MG TABLET PO SCH (16:37)
[2018-08-30 16:43] LABS: BG CARBOXYHEMOGLOBIN 0.2 % (0.5-1.5); BG DEOXYHEMOGLOBIN 2.2 % (0.0-5.0); BG FRACTION INSPIRED OXYGEN 50; BG METHEMOGLOBIN 0.8 % (0.0-1.5); BG OXYGEN SATURATION 97.8 % (92.0-98.5); BG OXYHEMOGLOBIN 96.8 % (94.0-97.0); BG PCO2 30.1 mmHg (35.0-45.0); BG PH < 6.680 (7.350-7.450); BG PO2 198.5 mmHg (75.0-100.0); BG SAMPLE SITE RIGHT FEMORAL; BG TIDAL VOLUME(mL) 500 mL; BG TOTAL HEMOGLOBIN 9.8 g/dL (12.0-18.0); BG VENT MODE VENT - A/C; BG VENT RATE 20 set
[2018-08-30] MEDS: MEROPENEM 1,000 MG in SODIUM CHLORIDE 0.9% 100 ML IV SCH ×2 (16:50→21:01)
[2018-08-30 19:03] LABS: BASOPHILS % 0.3 % (0.0-2.0); EOSINOPHILS % 0.1 % (0.0-5.0); HEMATOCRIT. 29.6 % (42.0-52.0); LYMPHOCYTES % 19.1 % (20.0-50.0); MEAN CORPUSCULAR HEMOGLOBIN 31.2 pg (28.0-32.0); MEAN CORPUSCULAR VOLUME 114.8 fL (80.0-94.0); MEAN PLATELET VOLUME 11.3 fl (7.4-10.4); NEUTROPHILS % 72.5 % (40.0-76.0); RED BLOOD CELL COUNT 2.58 mill/uL (4.7-6.1); RED CELL DISTRIBUTION WIDTH 20.1 % (11.6-14.6)
[2018-08-30 19:06] LABS: PLATELET 36 x1000/uL (130-400)
[2018-08-30] MEDS ORDERED: SODIUM BICARBONATE 8.4% 1 MEQ/ML 50ML SYR IV NR (19:18)
[2018-08-30] MEDS ORDERED: DEXTROSE 50% WATER 50ML SYRINGE IV NR (19:19)
[2018-08-30] MEDS ORDERED: NOREPINEPHRINE 32 MG in DEXT 5% WATER 468 ML IV PRN (22:16)
[2018-08-30] MEDS ORDERED: PHENYLEPHRINE 80 MG in DEXT 5% WATER 492 ML IV PRN (22:16)
[2018-08-30] MEDS ORDERED: SODIUM CHLORIDE 0.9% 500 ML IV ONE (23:15)
[2018-08-31] VITALS (38 sets, daily range): BP systolic 46–83; BP diastolic 27–56
[2018-08-31] MEDS: NYSTATIN 100,000 UNITS/ML 5ML UDC SSW SCH (00:34)
[2018-08-31] MEDS: IPRATROPIUM/ALBUTEROL 0.5-3(2.5)MG/3ML NEB INH SCH ×2 (00:35→04:19)
[2018-08-31] MEDS: VASOPRESSIN 10 UNIT in SODIUM CHLORIDE 0.9% 99.5 ML IV PRN ×2 (02:27→07:11)
[2018-08-31] MEDS ORDERED: NOREPINEPHRINE 32 MG in DEXT 5% WATER 468 ML IV PRN (04:30)
[2018-08-31] MEDS ORDERED: PHENYLEPHRINE 80 MG in DEXT 5% WATER 492 ML IV PRN (04:30)
[2018-08-31 05:44] LABS: MEAN CORPUSCULAR HEMOGLOBIN 30.8 pg (28.0-32.0); MEAN CORPUSCULAR VOLUME 117.8 fL (80.0-94.0); MEAN PLATELET VOLUME 11.1 fl (7.4-10.4); RED BLOOD CELL COUNT 2.03 mill/uL (4.7-6.1); RED CELL DISTRIBUTION WIDTH 20.7 % (11.6-14.6)
[2018-08-31] MEDS: SODIUM CHLORIDE 0.9% INJ 3ML FLUSH IVF SCH (05:44)
[2018-08-31] MEDS: BENZONATATE 100MG CAPSULE PO SCH (05:45)
[2018-08-31] MEDS: BLOOD SUGAR DIAGNOSTIC STRIP TEST SCH (05:45)
[2018-08-31] MEDS: INSULIN LISPRO 100 UNITS/ML SUBCUT SCH (05:57)
[2018-08-31 06:30] LABS: HEMOGLOBIN. 6.3 g/dL (14.0-18.0)
[2018-08-31 06:31] LABS: PLATELET 33 x1000/uL (130-400)
[2018-08-31 07:47] LABS: PLATELET ESTIMATE MARKEDLY DECREASED
[2018-08-31] MEDS ORDERED: SODIUM BICARBONATE 150 MEQ in SODIUM CHLORIDE 0.9% 1,000 ML IV SCH ×3 (08:04)
[2018-08-31] MEDS ORDERED: SODIUM BICARBONATE 8.4% 1 MEQ/ML 50ML SYR IV NR (08:15)
[2018-08-31] MEDS: MEROPENEM 1,000 MG in SODIUM CHLORIDE 0.9% 100 ML IV SCH (08:16)
[2018-08-31] MEDS ORDERED: LINEZOLID 600MG TABLET PO SCH (09:00)
[2018-08-31] MEDS ORDERED: EPINEPHRINE 0.1MG/ML (1:10,000) 10ML SYR ONE (09:00)
[2018-08-31] MEDS ORDERED: CALCIUM CHLORIDE 1GM/10ML SYR IV ONE (09:00)
[2018-08-31] MEDS ORDERED: LEVOFLOXACIN 250MG TABLET PO SCH (09:00)
[2018-08-31] MEDS ORDERED: SODIUM BICARBONATE 7.5% 0.9 MEQ/ML 50ML SYR IV ONE (09:00)
[2018-08-31 09:09] LABS: BG FRACTION INSPIRED OXYGEN 50; BG PCO2 47.5 mmHg (35.0-45.0); BG PH < 6.686 (7.350-7.450); BG PO2 69.1 mmHg (75.0-100.0); BG SAMPLE SITE RIGHT FEMORAL; BG TOTAL HEMOGLOBIN < 4.5 g/dL (12.0-18.0); BG VENT MODE VENT - A/C
[2018-08-31] MEDS ORDERED: VANCOMYCIN 1 G PREMIX 200 ML IV NR (10:00)
== END 2018-08-31 09:10 | disposition expired | DRG 871 ==
LOC: ER 19:57 → 7WST 08-23 00:49 → EDBEDREQ 08-23 01:01 → EDBEDREQTM 08-23 01:01 → EDBEDREQDT 08-23 01:01 → ENRESERV 08-23 01:14 → MICUSO 08-30 08:02 → MICUNO 08-30 08:05
PROVIDERS: ADMIT Internal Medicine; ATTEND Internal Medicine
PROC: 0DB68ZX Excision of Stomach, Via Natural or Artificial Opening Endoscopic, Diagnostic (ICD-10-PCS; 2018-08-28)
PROC: 0DH63UZ Insertion of Feeding Device into Stomach, Percutaneous Approach (ICD-10-PCS; 2018-08-28)
PROC: 30233R1 Transfusion of Nonautologous Platelets into Peripheral Vein, Percutaneous Approach (ICD-10-PCS; 2018-08-28)
PROC: 0BH17EZ Insertion of Endotracheal Airway into Trachea, Via Natural or Artificial Opening (ICD-10-PCS; principal; 2018-08-30)
PROC: B54MZZA Ultrasonography of Right Upper Extremity Veins, Guidance (ICD-10-PCS; 2018-08-30)
PROC: 05HY33Z Insertion of Infusion Device into Upper Vein, Percutaneous Approach (ICD-10-PCS; 2018-08-30)
PROC: 30233N1 Transfusion of Nonautologous Red Blood Cells into Peripheral Vein, Percutaneous Approach (ICD-10-PCS; 2018-08-30)
PROC: 5A1935Z Respiratory Ventilation, Less than 24 Consecutive Hours (ICD-10-PCS; 2018-08-30)
PROC: 5A12012 Performance of Cardiac Output, Single, Manual (ICD-10-PCS; 2018-08-31)
DX: A41.9 Sepsis, unspecified organism (principal); E43 Unspecified severe protein-calorie malnutrition; G92 Toxic encephalopathy; R65.21 Severe sepsis with septic shock; N17.0 Acute kidney failure with tubular necrosis; J96.20 Acute and chronic respiratory failure, unspecified whether with hypoxia or hypercapnia; J69.0 Pneumonitis due to inhalation of food and vomit; A15.0 Tuberculosis of lung; B37.0 Candidal stomatitis; E87.0 Hyperosmolality and hypernatremia; E87.2 Acidosis; D68.9 Coagulation defect, unspecified; E87.70 Fluid overload, unspecified; R65.20 Severe sepsis without septic shock; D64.9 Anemia, unspecified; D69.59 Other secondary thrombocytopenia; E11.65 Type 2 diabetes mellitus with hyperglycemia; E78.5 Hyperlipidemia, unspecified; E87.5 Hyperkalemia; G24.9 Dystonia, unspecified; I10 Essential (primary) hypertension; J38.00 Paralysis of vocal cords and larynx, unspecified; K21.9 Gastro-esophageal reflux disease without esophagitis; J44.9 Chronic obstructive pulmonary disease, unspecified; K29.60 Other gastritis without bleeding; K29.80 Duodenitis without bleeding; K52.9 Noninfective gastroenteritis and colitis, unspecified; K74.60 Unspecified cirrhosis of liver; R01.1 Cardiac murmur, unspecified; R49.0 Dysphonia; R13.10 Dysphagia, unspecified; R47.02 Dysphasia; R62.7 Adult failure to thrive; Z78.9 Other specified health status; Z79.4 Long term (current) use of insulin; Z79.51 Long term (current) use of inhaled steroids; Z85.46 Personal history of malignant neoplasm of prostate; Z87.891 Personal history of nicotine dependence; Z90.49 Acquired absence of other specified parts of digestive tract; Z90.79 Acquired absence of other genital organ(s); Z79.84 Long term (current) use of oral hypoglycemic drugs; Z79.899 Other long term (current) drug therapy; Z79.82 Long term (current) use of aspirin; Z68.22 Body mass index [BMI] 22.0-22.9, adult
CPT/HCPCS: 36415; 36569; 36600; 71045; 76770; 76937; 80048; 80061; 80076; 80202; 82375; 82378; 82550; 82553; 82962; 83605; 83880; 84134; 84145; 84439; 84443; 84484; 85027; 85049; 86677; 86850; 86900; 86920; 92610; 92950; 93005; 94002; 94003; 94640; 97162; 97166; 99291; C1725; J0330; J0610; J1815; J1956; J2185; J2250; J2370; J2405; J3010; J3370; J3490; J7030; J7040; J7050; J7060; J7070; J7620; P9016; P9034; A4315